=== PATIENT | male | born 1950 | race Caucasian/White ===

== ENCOUNTER 2023-08-12 01:39 | Emergency (ER) | payer BC, MEDICARE, OTHER, SELFPAY ==
[2023-08-12 02:00] LABS: % Basophils 0.4 % (0-2); % Eosinophils 1.9 % (0-6); % Immature Granulocytes 0.3 % (0-0.5); % Lymphocytes 13.8 % (20.5-51.1); % Monocytes 10.3 % (1.7-9.3); % Neutrophils 73.3 % (42.2-75.2); Absolute Eosinophils 0.2 10^3/uL (0-0.7); Absolute Lymphocytes 1.4 10^3/uL (1.2-3.4); Absolute Neutrophils 7.4 10^3/uL (1.4-6.5); Hematocrit 46.9 % (39.0-52.0); Hemoglobin 15.7 g/dL (13.0-18.0); Mean Corp Hgb Conc. 33.5 g/dL (33.0-37.0); Mean Corpuscular Hgb 29.7 pg (27.0-31.0); Mean Corpuscular Volume 88.7 fL (80.0-94.0); Mean Platelet Volume 10.3 fL (7.4-10.4); Nucleated Red Blood Cells % 0 % (-); Platelet Count 210 10^3/uL (130-400); Red Blood Cell Count 5.29 10^6/uL (4.70-6.10)
[2023-08-12 02:12] LABS: ALT (SGPT) 31 U/L (0-50); AST (SGOT) 23 U/L (17-59); Albumin 4.3 g/dl (3.5-5.0); Alkaline Phosphatase 104 U/L (38-126); Blood Urea Nitrogen 23 mg/dl (9-20); Calcium 9.7 mg/dl (8.4-10.2); Carbon Dioxide 25 mmol/L (22-30); Chloride 105 mmol/L (98-107); Estimated Creatinine Clearance 40 ml/min; Glucose 196 mg/dl (70-99); Potassium 4.3 mmol/L (3.5-5.1); Sodium 140 mmol/L (135-145); Total Bilirubin 0.6 mg/dl (0.2-1.3); Total Protein 6.4 g/dl (6.3-8.2); eGFR 38.77
[2023-08-12 02:14] LABS: INR 1.03; PT 13.3 Sec (11.4-14.6)
[2023-08-12 02:15] LABS: APTT 27.7 Sec (23.4-35.0)
[2023-08-12 02:23] LABS: NT-proBNP 1790 pg/ml; Troponin I < 0.012 ng/ml
--- NOTE | 2023-08-12 02:55 | ED.GENMED ---
History of Present Illness
General
Chief Complaint: Heart Rate Problem
Source: patient, spouse and previous hospital records (Hospitalization June 2021. Patient underwent dual-chamber ICD placement)
Exam Limitations: none
Time Seen by Provider: 08/12/23 02:15
Nursing documentation reviewed up to this point in time: agreed with
History of Present Illness
History of Present Illness:
This is a 73-year-old gentleman who has history of chronic heart failure with reduced EF of 20 to 25%, underwent ICD placement June 2021. He also has history of paroxysmal atrial fibrillation chronically maintained on Eliquis, metoprolol, Entresto.
History of hypertension, ecw-fjdivcm-cqvsujenq diabetes, hyperlipidemia, chronic kidney disease stage III and remote history of prostate cancer with prior prostatectomy.
Tonight while lying in bed he admits to having somewhat difficulty falling asleep and then developed some palpitations feeling that his heart was beating slightly faster than usual, he got up out of bed to go to the bathroom and became lightheaded
and slumped to the floor but denies loss of consciousness, did not strike his head. He denies chest pain nor coughing or shortness of breath. Currently denies palpitations.
Prior to tonight he has been feeling well. No shortness of breath. He is compliant with daily weights and states his weight has not changed, has been 200 pounds on a daily basis. No leg pain or swelling.
No recent change in medications.
He arrives via EMS and is noted to be in atrial fibrillation with rapid ventricular response.
Patient states his defibrillator was interrogated last month and he was noted to have 1 episode of A-fib in May that lasted approximately 4 hours during sleep. He was asymptomatic at that time. Prior to that he has not suffered A-fib for quite
some time.
Past History
Past History
ED Past Medical History: Arrthythmia (Paroxysmal atrial fibrillation), Cancer (Prostate cancer status post radical prostatectomy 2019), CHF (Cardiomyopathy EF of 20 to 25%), HTN, Hypercholesterolemia and NIDDM
ED Past Surgical History: Appendectomy (AICD June 2021) and Urological (Radical prostatectomy October 2019)
Social History
Tobacco: Non-smoker
Alcohol: None
Personal:
Living: with family
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
Family History
Family History: Other (Noncontributory)
Phy Exam
Physical Exam
Physical Exam:
GENERAL: 73-year-old gentleman appears his stated age, awake and alert, pleasant, appears in no acute distress. is accompanying.
EYE: pupils equal and reactive
NECK: Supple, no significant adenopathy.
ENT: o/p clr, mmm.
CARDIAC: Irregularly irregular, tachycardic
LUNGS: Clear breath sounds bilaterally, no acute respiratory distress,
ABDOMEN: Soft, without focal tenderness, no r/g, no cvat
NEUROLOGICAL: Alert and oriented, no focal neuro deficits
SKIN: Warm and dry, skin intact.
MUSCULOSKELETAL: No edema, well perfused.
PSYCH: Normal and appropriate interaction.
Course
Orders/Labs/Results
Orders:
Orders
08/12/23 01:44
Electrocardiogram (*1) Urgent
Reason for Study: Atrial Fibrillation
EKG- Treatment ONCE
08/12/23 01:49
Electrocardiogram (*1) Urgent
Reason for Study: Other
Other Reason for Exam: Respiratory Distress
Cardiac Monitoring- Treatment ONCE
EKG- Treatment ONCE
IV Insert/Care/Rem.- Treatment PRN
CR Chest - 2 Views Urgent
Comment:
Reason For Exam: respiratory distress
O2 Therapy [RESP] Urgent
Titrate/Wean O2 to maintain O2 sat greater than (%): 93
Special Instructions: TO MAINTAIN CONTINUOUS O2 SATS >/= 93%
Pulse Ox/cont/shift [RESP] Urgent
Quantity: 1
Special Instructions: continuous pulse ox
08/12/23 01:53
Complete Blood Count/With Diff Urgent
Comprehensive Metabolic Panel Urgent
NT-proBNP Urgent
PTT Urgent
Prothrombin Time Urgent
Troponin I Urgent
08/12/23 02:46
Propofol [Diprivan] 20 ml .ROUTE .STK-MED
08/12/23 03:20
Propofol [Diprivan] 90 mg IV NOW STA
08/12/23 03:31
Electrocardiogram (*1) Urgent
Reason for Study: Atrial Fibrillation
EKG- Treatment ONCE
Abnormal Lab Results
08/12/23
01:53
Absolute Neuts (auto) 7.4 H 10^3/uL
(1.4-6.5)
Absolute Monos (auto) 1.0 H 10^3/uL
(0.1-0.6)
Lymphocytes % 13.8 L %
(20.5-51.1)
Monocytes % 10.3 H %
(1.7-9.3)
BUN 23 H mg/dl
(9-20)
Creatinine 1.8 H mg/dL
(0.7-1.3)
Glucose 196 H mg/dl
(70-99)
08/12/23 01:53
08/12/23 01:53
Vital Signs
Initial and Last Documented VS:
Initial Vital Signs
Pulse Resp
123 20
08/12/23 01:42 08/12/23 01:42
Last Documented Vital Signs
Temp Pulse Resp BP Pulse Ox
98.7 F 108 20 103/57 98
08/12/23 05:34 08/12/23 05:00 08/12/23 05:00 08/12/23 05:00 08/12/23 05:40
Procedures
Cardioversion
Indication:: Afib
Performed by:: jose l
Synchronized?: Yes
Energy Used: 200 joules
Number of attempts: 2
Successful?: Yes
Complications: brief hypoxemia post procedure, promptly resolved with supplemental oxygen
ASA Risk Score: Class II
Any reaction or bad outcome to prior sedation/anesthesia?: No history of a reaction
Sedation level to be attained: moderate
Chart and allergies reviewed: Yes
Patient reassessed prior to sedation: Yes
Time out completed at (validating right patient & procedure): 03:22
History of difficult intubation: No
Airway free of obstruction: Yes
Patient has a gag reflex: Yes
Patient is able to open mouth: Yes
Patient has no dentures: Yes
Patient has no loose teeth: Yes
Medication administered by Provider during Moderate Sedation: IV Propofol (mg)
Total dose administered: 90
Time drug administered: 03:23
Start Time: 03:23
Stop Time: 03:34
MDM/Problems Addressed
Differential Diagnosis Includes:
Patient presents in atrial fibrillation with rapid ventricular response. Suffered a near syncopal event
After getting up out of bed but denies injury nor loss of consciousness. Witnessed by his .
No traumatic findings on exam.
Monitor shows atrial fibrillation with rapid ventricular response 1 10-1 30. He remains hemodynamically stable with systolic blood pressure 120s to 130.
*Pulse Oximetry
Patient hypoxic: no
*EKG
Interpreted by ED Provider?: Yes
Interpretation: abnormal
Comparison EKG: changes noted (Atrial fibrillation has changed normal sinus rhythm)
Rate: tachycardiac
Rhythm: a-fib
[place]: normal axis
QRS Pattern: normal QRS
Ischemia: non-specific ST changes
*Transmission Mechanic Interpretation
Rate: tachycardiac
Interpretation: abnormal
Rhythm: a-fib
*Critical Care Note
Total Time (30-74mins, 75-104mins- exclusive of procedures): Not Applicable
Update Note
Update Note:
Patient cardioverted to normal sinus rhythm without difficulty.
Monitor continues to show normal sinus rhythm, mild sinus tachycardia.
Blood pressure tends to run on the low side but he remains hemodynamically stable, blood pressure increases when standing and he has had no dizziness nor lightheadedness.
Recommend he continue his current medications including twice daily Eliquis, metoprolol, Entresto.
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 Randhawa next week.
ED Attending Note
-
Portions of this chart may have been created with voice recognition software.� Occasional wrong word or��sound alike� substitutions may have occurred due to the inherent limitations of voice recognition software.
Discharge Plan
Departure
Patient Disposition: Home (Routine Discharge)
Date of Disposition: 08/12/23
Time of Disposition: 05:05
Patient with high blood pressure during this ER visit?: No
Condition: Good
Discharge Problem:
Paroxysmal atrial fibrillation with rapid ventricular response
Instructions: Atrial Fibrillation (DC), MODERATE SEDATION ADULT
Prescriptions:
No Action
atorvastatin 10 MG tablet
10 mg PO QPM
Trulicity 1.5 MG/0.5 ML pen injector
See Rx Instructions .ROUTE .COMPLEX
Rx Instructions:
3 mg sq on Tuesdays
glimepiride 4 MG tablet
4 mg PO BID
Jardiance 25 MG tablet
25 mg PO DAILY
metoprolol succinate 100 MG tablet extended release 24 hr
100 mg PO DAILY
aspirin 81 MG tablet,delayed release (DR/EC)
81 mg PO DAILY
Entresto 1 EACH tablet
1 ea PO BID
Rx Instructions:
49/51
docusate sodium [Colace] 100 MG capsule
100 mg PO BID
Eliquis 5 mg Tablet
5 mg PO BID
metformin 1,000 MG tablet
1,000 mg PO DAILY
Referrals:
Orlando Randhawa, DO [Active] - Call in 1-3 days for appt
Casandra Mercado MD [Family Provider] -
Interventions
Interventions:
*Risk Screen - Suicide Last Done: 08/12/23 01:42
*General Assessment Last Done: 08/12/23 01:42
*Neglect/Abuse Screening Last Done: 08/12/23 01:42
ED- Fall Risk Assessment Last Done: 08/12/23 01:42
*ED COVID-19 Vaccine History Last Done: 08/12/23 01:42
*Nursing Disposition Last Done: 08/12/23 05:40
ED- Cardiac Assessment Last Done: 08/12/23 02:03
ED- Pulmonary Assessment Last Done: 08/12/23 02:03
Discharge Date and Time
Discharge Date/Time: 08/12/23 05:30
Print Language: FRENCH
[2023-08-12 03:22] VITALS: BP 98/55
[2023-08-12 03:31] VITALS: BP 111/54
[2023-08-12] MEDS: DIPRIVAN 90 MG IV (03:31)
[2023-08-12 03:42] VITALS: BP 81/53
[2023-08-12 03:46] VITALS: BP 81/53
[2023-08-12 03:56] VITALS: BP 95/65
[2023-08-12 05:00] VITALS: BP 103/57
== END 2023-08-12 05:30 | disposition home or self-care (01) ==
LOC: EMR 01:39
PROVIDERS: EMERGENCY PHYSICIAN Emergency Medicine; FAMILY PHYSICIAN Internal Medicine
DX: R55 Syncope and collapse (principal); R00.2 Palpitations; I13.0 Hypertensive heart and chronic kidney disease with heart failure and stage 1 through stage 4 chronic kidney disease, or unspecified chronic kidney disease; I50.22 Chronic systolic (congestive) heart failure; E11.22 Type 2 diabetes mellitus with diabetic chronic kidney disease; N18.30 Chronic kidney disease, stage 3 unspecified; E78.00 Pure hypercholesterolemia, unspecified; I48.0 Paroxysmal atrial fibrillation; I42.9 Cardiomyopathy, unspecified
CPT/HCPCS: 99283; 92960; 99152; 96374; 71046; 80053; 83880; 84484; 85025; 85610; 85730; 93005

== ENCOUNTER 2023-11-13 13:26 | Inpatient (IN) | payer MEDICARE, OTHER, SELFPAY ==
[2023-11-13] VITALS (12 sets, daily range): BP systolic 96–165; BP diastolic 57–88; BMI 27.8
--- NOTE | 2023-11-13 09:30 | EDRN ---
Pt states that he arrives for two days of SOB at rest w/ exertion and orthopnea, also getting lightheaded/dizziness not related to him resting. Pt also adds he has light pressure chest pain earlier today, none at this time. Norma TEJADA in room w/
pt.
--- NOTE | 2023-11-13 09:40 | ED.GENMED ---
History of Present Illness
<Michael Jimenes PA-C - Last Filed: 11/13/23 13:25>
General
Chief Complaint: Cardiac Symptoms
Source: patient
Time Seen by Provider: 11/13/23 09:25
History of Present Illness
History of Present Illness:
73-year-old male with past medical history of paroxysmal atrial fibrillation, CHF, hypertrophic cardiomyopathy, hypertension, hyperlipidemia, status post ICD implantation presenting to the emergency department for evaluation of 2 to 3 days of
intermittent chest discomfort, exertional dyspnea, last night had 2 pillow orthopnea and feeling intermittently lightheaded. At present time and on arrival to the emergency department patient states he has no concerns presently and states that the
chest discomfort he was feeling this morning is now resolved. 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 Family notes that patient had an episode of atrial fibrillation which brought him to the ER back at the end of July and has not had
any issues since. Patient denies any fevers or infectious symptoms but does note that he had an extended vacation from October 05 until October 23 where both him and his were abroad on a cruise. Patient also denies any peripheral edema,
abdominal pain, nausea, vomiting. He reports good compliance with all medications including his Eliquis and beta-ligia.
Past History
<Michael Jimenes PA-C - Last Filed: 11/13/23 13:25>
Past History
ED Past Medical History: Arrthythmia (Paroxysmal atrial fibrillation), Cancer (Prostate cancer status post radical prostatectomy 2019), CHF (Cardiomyopathy EF of 20 to 25%), HTN, Hypercholesterolemia and NIDDM
ED Past Surgical History: Appendectomy (AICD June 2021) and Urological (Radical prostatectomy October 2019)
Social History
Tobacco: Non-smoker
Alcohol: None
Drug: None
Personal:
Living: with family
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
Family History
Family History: Other (Noncontributory)
Review of Systems
<Michael Jimenes PA-C - Last Filed: 11/13/23 13:25>
Review of Systems
All Other Systems: ROS reviewed and negative except as documented in HPI and ROS
Phy Exam
<Michael Jimenes PA-C - Last Filed: 11/13/23 13:25>
Physical Exam
Physical Exam:
GENERAL: Alert , in no apparent distress
HEAD: NCAT
EYE: clear conjunctiva
NECK: Supple
ENT: mmm.
CARDIAC: Tachycardic rate and rhythm, frequent ectopy
LUNGS: Clear breath sounds bilaterally, no acute respiratory distress, no wheezes/rales/rhonchi
NEUROLOGICAL: Alert and oriented
SKIN: Warm and dry, skin intact.
MUSCULOSKELETAL: No edema, well perfused.
PSYCH: Normal and appropriate interaction.
Scores
<Michael Jimenes PA-C - Last Filed: 11/13/23 13:25>
Heart Failure Risk
Heart Failure Risk Score: Yes
History of Stroke or TIA: No
History of intubation for respiratory distress: No
Heart rate on ED arrival >/= 110: No
SaO2 <90% on arrival on room air: No
HR >/=110 during 3min walk test (or too ill to perform test): Yes
ECG has acute ischemic changes: No
Urea >/=12mmol/L (BUN 33.6mg/dL): Yes
Serum CO2>/=35mmol/L: No
Troponin I or T elevated to VT Level (0.4mg/dL): No
NT-proBNP >/=5,000ng/L (5,000pg/ml): Yes
HF Risk Score: 4
Admission Status: HIGH RISK 26.1% Consider SNF treatment or admission to hospital
Heart Score for Chest Pain Patients
STEMI patient?: No
History: Slightly or Non-Suspicious
ECG: Nonspecific Repolarization
Age: >/= 65 years
Risk Factors: 1 or 2 Risk Factors
Troponin: </= Normal Limit
Heart Score for Chest Pain Patients: 4
Heart Score Risk: 20.3% MACE over next 6 weeks
Withdrawal Assessment of Alcohol
Withdrawal Assessment Completed?: Not applicable
<Jc Multani DO - Last Filed: 11/13/23 15:46>
Heart Failure Risk
HF Risk Score: 4
Admission Status: HIGH RISK 26.1% Consider SNF treatment or admission to hospital
Heart Score for Chest Pain Patients
Heart Score for Chest Pain Patients: 4
Heart Score Risk: 20.3% MACE over next 6 weeks
Course
<Michael Jimenes PA-C - Last Filed: 11/13/23 13:25>
Orders/Labs/Results
Orders:
Orders
11/13/23 09:16
ECG [Electrocardiogram (*1)] Urgent
Reason for Study: Chest Pain
EKG- Treatment ONCE
11/13/23 09:27
IV Insert/Care/Rem.- Treatment PRN
11/13/23 09:42
Complete Blood Count/With Diff Urgent
Comprehensive Metabolic Panel Urgent
D-Dimer Urgent
Magnesium Urgent
Pro-BNP [NT-proBNP] Urgent
Troponin I Urgent
11/13/23 10:44
CR Chest - 2 Views Urgent
Comment:
Reason For Exam: SOB, chest discomfort
11/13/23 11:55
Furosemide [Lasix] 40 mg IV NOW STA
11/13/23 12:36
Troponin I Urgent
11/13/23 13:02
CARDIOLOGY CONSULT Routine
Consulting Provider: Eleazar Metz
Was physician already notified: Yes
Reason for consult: Acute CHF
11/13/23 13:03
Admit/Transfer Patient As Directed
Co-Sign Provider:
Level of Care: Inpatient admission
Assign to:: Telemetry
Physician / Group: rick haji
Diagnosis: acute diastolic chf,cp 2/2chf
Reason for Telemetry: Arrhythmia
Date to Stop Telemetry: 11/16/23
Time to Stop Telemetry: 11:00
Reason for Hospitalization: chf
Expected length of stay greater than two midnights?: Yes
ELOS- Estimated Length of Stay in days: 3
I certify the patient meets the requirements for IP care: Yes
Code Status As Directed
Resuscitation Status: Full Code
11/13/23 13:07
PRN Pain Medication Management As Directed
May give lesser potent ordered pain med per pt: Yes
preference::
Protocol:: Medication orders for pain may be administered in a
manner that supports deferring to patient preference
when the pt is:
- Requesting an ordered lesser potent pain medication.
Least to most potent pain medications are defined
as: acetaminophen < NSAID < tramadol < opioids
(morphine, oxycodone, hydromorphone).
- Requesting a lesser dose of the same medication IF
ORDERED.
- Requesting a less intrusive route of administration
if both routes are prescribed by the provider (PO <
IV).
11/13/23 18:30
Troponin I Urgent
11/14/23 06:00
Echo 2D MMode Color/Doppler Routine
Reason for Study: heart failure, NSVT
Cardiology Consult: Eleazra Metz
11/16/23 11:00
DC Protocol for Telemetry ONCE
Abnormal Lab Results
11/13/23
09:42
WBC 11.2 H 10^3/uL
(4.8-10.8)
MCHC 32.7 L g/dL
(33.0-37.0)
RDW 14.6 H %
(11.5-14.5)
MPV 11.7 H fL
(7.4-10.4)
Absolute Neuts (auto) 9.8 H 10^3/uL
(1.4-6.5)
Absolute Lymphs (auto) 0.5 L 10^3/uL
(1.2-3.4)
Absolute Monos (auto) 0.8 H 10^3/uL
(0.1-0.6)
Neutrophils % 87.8 H %
(42.2-75.2)
Lymphocytes % 4.6 L %
(20.5-51.1)
Carbon Dioxide 20 L mmol/L
(22-30)
BUN 34 H mg/dl
(9-20)
Creatinine 1.7 H mg/dL
(0.7-1.3)
Glucose 175 H mg/dl
(70-99)
11/13/23 09:42
11/13/23 09:42
Vital Signs
Initial and Last Documented VS:
Initial Vital Signs
Temp Pulse Resp BP Pulse Ox
98.1 F 60 16 165/72 98
11/13/23 09:19 11/13/23 09:19 11/13/23 09:19 11/13/23 09:19 11/13/23 09:19
Last Documented Vital Signs
Temp Pulse Resp BP Pulse Ox
98.1 F 106 25 96/68 94
11/13/23 09:19 11/13/23 15:01 11/13/23 15:01 11/13/23 15:01 11/13/23 14:45
Automotive Buyer consulted with Physician
Automotive Buyer consulted with physician?: Yes
Name of Physician Consulted: Carmen
<Jc Multani, DO - Last Filed: 11/13/23 15:46>
Orders/Labs/Results
Orders:
Orders
11/13/23 09:16
ECG [Electrocardiogram (*1)] Urgent
Reason for Study: Chest Pain
EKG- Treatment ONCE
11/13/23 09:27
IV Insert/Care/Rem.- Treatment PRN
11/13/23 09:42
Complete Blood Count/With Diff Urgent
Comprehensive Metabolic Panel Urgent
D-Dimer Urgent
Magnesium Urgent
Pro-BNP [NT-proBNP] Urgent
Troponin I Urgent
11/13/23 10:44
CR Chest - 2 Views Urgent
Comment:
Reason For Exam: SOB, chest discomfort
11/13/23 11:55
Furosemide [Lasix] 40 mg IV NOW STA
11/13/23 12:36
Troponin I Urgent
11/13/23 13:02
CARDIOLOGY CONSULT Routine
Consulting Provider: Eleazar Metz
Was physician already notified: Yes
Reason for consult: Acute CHF
11/13/23 13:03
Admit/Transfer Patient As Directed
Co-Sign Provider:
Level of Care: Inpatient admission
Assign to:: Telemetry
Physician / Group: rick haji
Diagnosis: acute diastolic chf,cp 2/2chf
Reason for Telemetry: Arrhythmia
Date to Stop Telemetry: 11/16/23
Time to Stop Telemetry: 11:00
Reason for Hospitalization: chf
Expected length of stay greater than two midnights?: Yes
ELOS- Estimated Length of Stay in days: 3
I certify the patient meets the requirements for IP care: Yes
Code Status As Directed
Resuscitation Status: Full Code
11/13/23 13:07
PRN Pain Medication Management As Directed
May give lesser potent ordered pain med per pt: Yes
preference::
Protocol:: Medication orders for pain may be administered in a
manner that supports deferring to patient preference
when the pt is:
- Requesting an ordered lesser potent pain medication.
Least to most potent pain medications are defined
as: acetaminophen < NSAID < tramadol < opioids
(morphine, oxycodone, hydromorphone).
- Requesting a lesser dose of the same medication IF
ORDERED.
- Requesting a less intrusive route of administration
if both routes are prescribed by the provider (PO <
IV).
11/13/23 18:30
Troponin I Urgent
11/14/23 06:00
Echo 2D MMode Color/Doppler Routine
Reason for Study: heart failure, NSVT
Cardiology Consult: Eleazar Metz
11/16/23 11:00
DC Protocol for Telemetry ONCE
Abnormal Lab Results
11/13/23
09:42
WBC 11.2 H 10^3/uL
(4.8-10.8)
MCHC 32.7 L g/dL
(33.0-37.0)
RDW 14.6 H %
(11.5-14.5)
MPV 11.7 H fL
(7.4-10.4)
Absolute Neuts (auto) 9.8 H 10^3/uL
(1.4-6.5)
Absolute Lymphs (auto) 0.5 L 10^3/uL
(1.2-3.4)
Absolute Monos (auto) 0.8 H 10^3/uL
(0.1-0.6)
Neutrophils % 87.8 H %
(42.2-75.2)
Lymphocytes % 4.6 L %
(20.5-51.1)
Carbon Dioxide 20 L mmol/L
(22-30)
BUN 34 H mg/dl
(9-20)
Creatinine 1.7 H mg/dL
(0.7-1.3)
Glucose 175 H mg/dl
(70-99)
11/13/23 09:42
11/13/23 09:42
Vital Signs
Initial and Last Documented VS:
Initial Vital Signs
Temp Pulse Resp BP Pulse Ox
98.1 F 60 16 165/72 98
11/13/23 09:19 11/13/23 09:19 11/13/23 09:19 11/13/23 09:19 11/13/23 09:19
Last Documented Vital Signs
Temp Pulse Resp BP Pulse Ox
98.1 F 106 25 96/68 94
11/13/23 09:19 11/13/23 15:01 11/13/23 15:01 11/13/23 15:01 11/13/23 14:45
<Michael Jimenes PA-C - Last Filed: 11/13/23 13:25>
MDM/Problems Addressed
Differential Diagnosis Includes:
CHF exacerbation, PE, worsening valvular dysfunction, ACS, arrhythmia
MDM/Problems Addressed:
73-year-old male presenting to the emergency department for evaluation of waxing and waning chest discomfort, exertional dyspnea, last night had orthopnea and lightheadedness. Patient with significant cardiac history. Good compliance with
medications. Given recent travel and tachycardia here we will obtain a D-dimer for possible PE although feel that this diagnosis is less likely given patient is maintained on Eliquis. Patient heart rate is between 115 in the 130 bpm during most of
my exam. There was a transient episode where the heart rate did drop into the 80s and 90s but then went right back up to around 115 bpm. Once labs resulted will discuss with cardiology to have them consult on patient while in the ED.
<Michael Jimenes PA-C - Last Filed: 11/13/23 13:25>
*Radiology
Radiology exam reviewed: preliminary read by ED provider (no effusions)
*Pulse Oximetry
Patient hypoxic: no
*EKG
Interpreted by ED Provider?: Yes
Comparison EKG: changes noted
Heart Rate: 110
Rate: tachycardiac
Rhythm: sinus and PVC's
*Share Holder Interpretation
Rate: tachycardiac
Rhythm: sinus and PVC's
*Critical Care Note
Total Time (30-74mins, 75-104mins- exclusive of procedures): Not Applicable
Data Reviewed
Review of Other/Old Records Reveals: Labs and Records
<Michael Jimenes PA-C - Last Filed: 11/13/23 13:25>
Patient Management
Discussion with other providers: Hospitalist and Engineering Instructor
Escalation/DeEscalation of care consider admission/obs:
Case discussed with [employer] after ICD was interrogated. Patient had a few episodes of nonsustained ventricular tachycardia on 11/07, few episodes of atrial tachycardia on 11/06 but device is functioning as it should. Patient's work and history
seems to be most convincing for CHF. Given history I did notify cardiology we will come to the ER to consult on the patient. Following their consultation they did recommend admission for diuresis. Hospitalist team is aware and accepts for
continued evaluation and treatment.
ED Attending Note
<Michael Jimenes PA-C - Last Filed: 11/13/23 13:25>
-
Portions of this chart may have been created with voice recognition software.� Occasional wrong word or��sound alike� substitutions may have occurred due to the inherent limitations of voice recognition software.
<Jc Multani DO - Last Filed: 11/13/23 15:46>
ED Attending Note
Patient seen and examined by attending physician: Yes
I performed the substantive portion of visit, reviewed & personally made and approve the management plan that is documented in note by myself or CHRISTINA.: Yes
ED Attending Note:
73-year-old male with history of A-fib and CHF who presents with orthopnea and shortness of breath. Was recently on vacation. Presents in bigeminy. Exam: Systolic ejection murmur noted. legs flat. bigeminy on tele.
A/P: suspect CHF. lasix, admit. seen by cardiology
Discharge Plan
Departure
Patient Disposition: Admit
Date of Disposition: 11/13/23
Time of Disposition: 12:20
Presentation/result/management discussed w/ accepting MD/DO: Hospitalist
Discharge Problem:
Acute exacerbation of CHF (congestive heart failure)
Interventions
Interventions:
*Risk Screen - Suicide Last Done: 11/13/23 09:19
*General Assessment Last Done: 11/13/23 09:43
*Neglect/Abuse Screening Last Done: 11/13/23 09:19
ED- Fall Risk Assessment Last Done: 11/13/23 09:43
*ED COVID-19 Vaccine History Last Done: 11/13/23 09:43
ED- Cardiac Assessment Last Done: 11/13/23 09:47
ED- Pulmonary Assessment Last Done: 11/13/23 09:47
[2023-11-13 09:52] LABS: % Basophils 0.4 % (0-2); % Eosinophils 0.1 % (0-6); % Immature Granulocytes 0.4 % (0-0.5); % Lymphocytes 4.6 % (20.5-51.1); % Monocytes 6.7 % (1.7-9.3); % Neutrophils 87.8 % (42.2-75.2); Absolute Lymphocytes 0.5 10^3/uL (1.2-3.4); Absolute Monocytes 0.8 10^3/uL (0.1-0.6); Absolute Neutrophils 9.8 10^3/uL (1.4-6.5); Hematocrit 45.5 % (39.0-52.0); Hemoglobin 14.9 g/dL (13.0-18.0); Mean Corp Hgb Conc. 32.7 g/dL (33.0-37.0); Mean Corpuscular Hgb 29.3 pg (27.0-31.0); Mean Corpuscular Volume 89.4 fL (80.0-94.0); Mean Platelet Volume 11.7 fL (7.4-10.4); Nucleated Red Blood Cells % 0 % (-); Platelet Count 200 10^3/uL (130-400); Red Blood Cell Count 5.09 10^6/uL (4.70-6.10); Red Cell Dist. Width 14.6 % (11.5-14.5); White Blood Cell Count 11.2 10^3/uL (4.8-10.8)
--- NOTE | 2023-11-13 10:10 | EDRN ---
Pacemaker/AICD interrogated at this time. Awaiting for report.
[2023-11-13 10:16] LABS: NT-proBNP 14700 pg/ml; Troponin I 0.023 ng/ml
[2023-11-13 10:21] LABS: ALT (SGPT) 50 U/L (0-50); AST (SGOT) 26 U/L (17-59); Albumin 4.2 g/dl (3.5-5.0); Alkaline Phosphatase 117 U/L (38-126); Blood Urea Nitrogen 34 mg/dl (9-20); Calcium 9.3 mg/dl (8.4-10.2); Carbon Dioxide 20 mmol/L (22-30); Chloride 105 mmol/L (98-107); Estimated Creatinine Clearance 42 ml/min; Glucose 175 mg/dl (70-99); Magnesium 2.1 mg/dl (1.6-2.3); Potassium 4.7 mmol/L (3.5-5.1); Sodium 139 mmol/L (135-145); Total Bilirubin 1.1 mg/dl (0.2-1.3); Total Protein 6.3 g/dl (6.3-8.2); eGFR 41.52
[2023-11-13 10:32] LABS: D-Dimer < 0.27 ug/mlFEU (0.00-0.50)
--- NOTE | 2023-11-13 11:25 | CON.CAR ---
Addendum entered and electronically signed by Eleazar Metz DO 11/13/23 20:07:
I saw and examined the patient.
The Social Worker Assistant's note was reviewed and I agree with the note.
Comment:
Plan:
-Presented 11/13/2023 with with worsening shortness of breath, orthopnea, chest tightness/pressure
Evidence of HFrEF acute on chronic
pBNP is increased to over 14K
OPTIVOL data trending upward consistent with increased volume.
recent dietary indescretion with cruise
Monitor for response to diuresis. lasix 40 mg IV in ER
he was not on lasix as outpt.
Cont outpatient GDMT for HFrEF w/ Entresto, Jardiance, Toprol and Jardiance.
Acute on chronic renal insufficiency with cr 1.7 baseline about 1.5. Monitor cr and daily wts and Is and Os with diuresis.
Nonobstructive coronary artery disease on catheterization in 2021. Troponin negative.
Paroxysmal atrial fibrillation maintained on anticoagulation with Eliquis. Pacemaker interrogation in July 2023 showed very low A-fib burden less than 0.1%. He did have Afib 08/12/2023 and underwent CV in [facility]. Afib burden low since then
Check echo to reeval
Discussed with at bedside.
Original Note:
Consultation
Consultation Request
Date/Time Consultation Requested: 11/13/2023
Date/Time Consultation Performed: 11/13/2023
Requesting Provider: Michael Darnell PA-C
Performing Provider: Edilma Seymour PA-C for Dr. Metz
Reason for Consultation: Shortness of breath, chest pain
Medical History
-
History of Present Illness:
Patient is a 73-year-old male with past medical history significant for nonischemic cardiomyopathy, dual-chamber Medtronic ICD, nonobstructive coronary artery disease on cardiac catheterization in 2021, paroxysmal atrial fibrillation on chronic
anticoagulation, hypertension, hyperlipidemia, type 2 diabetes, CKD stage IIIb who presents to emergency department from primary care office with complaints of intermittent chest discomfort x 2 to 3 days as well as progressively worsening dyspnea on
exertion. Patient and his are on an extended cruise in late September through mid October. Around 11/06/2023 he started noting worsening shortness of breath with intermittent dizziness/lightheadedness. Now has new two-pillow orthopnea and
chest pressure/heaviness D-dimer negative. proBNP elevated at 14,700. Chest x-ray moderate elevation of left hemidiaphragm associated with left basilar segment segmental atelectasis. Troponin x 1 negative. ECG showed sinus rhythm with PVCs with
ventricular bigeminy. Interrogation of his ICD shows upward trending OptiVol fluid index since early October. He has also had multiple brief episodes of NSVT last on 11/06/2023.
PMH:
Paroxysmal atrial fibrillation
Chronic anticoagulation on Eliquis
Heart failure with reduced ejection fraction
Hypertrophic cardiomyopathy
Dual-chamber Medtronic ICD 06/2021
Hypertension
Hyperlipidemia
Prostate cancer status post prostatectomy
Uxz-uoojmqk-mdbpcyhck diabetes
Past Medical History
Past Medical History: Other (See HPI)
Past Surgical History: Appendectomy, Cardiac (Dual-chamber Medtronic ICD June 2021), Urological (Radical prostatectomy October 2019) and Other (Bilateral cataract extractions)
Social History
Tobacco: Non-Smoker
Alcohol: Occasional (socially)
Drug: None
Personal:
Living: With Family
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
Family History
Family History: Diabetes and Hypertension
Allergies / Home Medications
Allergy/AdvReac Type Severity Reaction Status Date / Time
MAGALY Inhibitors Allergy severe Verified 11/13/23 09:23
cough
�Medication �Instructions �Recorded �Confirmed �Type
atorvastatin 10 mg tablet 10 mg PO QPM High cholesterol 10/22/19 08/12/23 History
dulaglutide 1.5 mg/0.5 mL See Rx Instructions .Route 10/22/19 08/12/23 History
subcutaneous pen injector .COMPLEX Diabetes
(Trulicity)
empagliflozin 25 mg tablet 25 mg PO DAILY 03/05/21 08/12/23 History
(Jardiance)
glimepiride 4 mg tablet 4 mg PO BID 03/05/21 08/12/23 History
aspirin 81 mg tablet,delayed 81 mg PO DAILY 06/09/21 08/12/23 History
release
metoprolol succinate 100 mg 100 mg PO DAILY 06/09/21 08/12/23 History
tablet,extended release 24 hr
sacubitril 49 mg-valsartan 51 mg 1 ea PO BID 06/09/21 08/12/23 History
tablet (Entresto)
docusate sodium 100 mg capsule 100 mg PO BID 06/22/21 08/12/23 History
(Colace)
apixaban 5 mg tablet (Eliquis) 5 mg PO BID 08/12/23 08/12/23 History
metformin 1,000 mg tablet 1,000 mg PO DAILY 08/12/23 08/12/23 History
Review of Systems
-
History Source: Patient
All other systems: Negative unless noted
Physical Exam
Vital Signs
Temp Pulse Resp BP Pulse Ox
98.1 F 108 29 139/81 93
11/13/23 09:19 11/13/23 11:00 11/13/23 11:00 11/13/23 11:00 11/13/23 11:21
GEN: No distress, awake, Ox3
HEENT: supple, anicteric, mmm
LUNGS: Crackles at bases, mildly decreased at left base as well, no wheezes/rales
CV: reg with ectopy noted, S1/S2, no murmur, rub or gallop
ABD: Mildly distended/mild firmness, BS+, nontender
EXT: Trace edema, no clubbing or cyanosis
NEURO: Gross non-focal
SKIN: No rash, warm, dry, pink
Lab Results
11/13/23 09:42
11/13/23 09:42
Troponin I 0.023 ng/ml 11/13/23 09:42
Kvf-K-Ezsnmhddlxd Pept 45307 pg/ml 11/13/23 09:42
Impression / Plan
-
PCP: Casandra Mercado
Lead Miner Blasting: Dr. Orlando Randhawa
Impression:
Presented 11/13/2023 with worsening shortness of breath, orthopnea, chest pain
Acute on chronic heart failure with reduced ejection fraction, proBNP 14,700
CARLOS on CKD
Paroxysmal atrial fibrillation, s/p CV 08/12/2023
Chronic anticoagulation on Eliquis
Heart failure with reduced ejection fraction
Non-ischemic cardiomyopathy
Dual-chamber Medtronic ICD 06/2021
Hypertension
Hyperlipidemia
Prostate cancer status post prostatectomy
Dvm-kbbtrkt-bahnyevlf diabetes
CKD, baseline creatinine 1.5
Echo 05/28/2021: EF 20 to 25% with global hypokinesis. Left ventricle mildly dilated. Left atrial dilation. Mildly reduced right systolic function. Mild MR.
Cardiac cath 2021: LAD 30% stenosis, left circumflex: Luminal irregularities. RCA: 20% stenosis.
Plan:
-Presented 11/13/2023 with with worsening shortness of breath, orthopnea, chest tightness/pressure
-Acute on chronic heart failure with reduced ejection fraction, proBNP 14,700, this is much higher than previous BNP which was 1790
-Interrogation of ICD shows upward trending OptiVol fluid index which started in early October and has continued to rise since.
-Most likely heart failure exacerbation secondary to traveling with dietary noncompliance while on cruise.
-Would give a dose of IV Lasix 40 mg x 1 now.
-Monitor response with diuresis. Pt is not on diuretic as outpt but likely will need to go home on 40 mg oral Lasix.
-Outpatient GDMT for HFrEF w/ Entresto, Jardiance, Toprol and Jardiance.
-CARLOS on CKD, 1.7. Baseline creat per outpt records 1.5. Monitor with diuresis. Consider holding Entresto with diuresis.
-Nonobstructive coronary artery disease on catheterization in 2021. Troponin negative. Would repeat given chest pressure/tightness.
-Paroxysmal atrial fibrillation maintained on anticoagulation with Eliquis. Pacemaker interrogation in July 2023 showed very low A-fib burden less than 0.1%. He did have Afib 08/12/2023 and underwent CV in [facility]. Afib burden low since then
-Dual-chamber Medtronic ICD interrogated. Several episodes of NSVT and 1 episode of SVT. Last NSVT was 11/05/2022. Patient currently in sinus rhythm with ventricular bigeminy. Monitor on telemetry
-Keep potassium greater than 4, magnesium greater than 2
-Last echo in 2021 showed reduced ejection fraction with global hypokinesis. Would repeat echo
HPI 11/13/2023:
Patient is a 73-year-old male with past medical history significant for nonischemic cardiomyopathy, dual-chamber Medtronic ICD, nonobstructive coronary artery disease on cardiac catheterization in 2021, paroxysmal atrial fibrillation on chronic
anticoagulation, hypertension, hyperlipidemia, type 2 diabetes, CKD stage IIIb who presents to emergency department from primary care office with complaints of intermittent chest discomfort x 2 to 3 days as well as progressively worsening dyspnea on
exertion. Patient and his are on an extended cruise in late September through mid October. Around 11/06/2023 he started noting worsening shortness of breath with intermittent dizziness/lightheadedness. Now has new two-pillow orthopnea and
chest pressure/heaviness D-dimer negative. proBNP elevated at 14,700. Chest x-ray moderate elevation of left hemidiaphragm associated with left basilar segment segmental atelectasis. Troponin x 1 negative. ECG showed sinus rhythm with PVCs with
ventricular bigeminy. Interrogation of his ICD shows upward trending OptiVol fluid index since early October. He has also had multiple brief episodes of NSVT last on 11/06/2023.
Data Reviewed
-
EKG: Report Reviewed by me, Discussed with Physician, Discussed with Nurse, Discussed with Patient and Discussed with Family
Radiology: Report Reviewed by me, Discussed with Physician, Discussed with Nurse, Discussed with Patient and Discussed with Family
Labs: Labs Reviewed by me, Discussed with Physician, Discussed with Nurse, Discussed with Patient and Discussed with Family
Old Records: Reviewed
[2023-11-13] MEDS: LASIX 40 MG IV (12:03)
--- NOTE | 2023-11-13 12:07 | EDRN ---
Noris TEJADA w/ cardiology in room w/ pt at this time.
--- NOTE | 2023-11-13 12:30 | EDRN ---
repeat troponin drawn and sent. Pt has voided 325 mL of urine in urinal since administration of lasix.
--- NOTE | 2023-11-13 12:32 | HPS.HSE ---
Family Physician
-
Family Physician: Casandra Mercado
Chief Complaint
-
Shortness of breath, MOHAN, orthopnea, chest pressure with activity
History of Present Illness
73-year-old male complaining of shortness of breath, orthopnea using 2 pillows, dyspnea on exertion with lightheadedness and pressure sensation in chest over the last 7 days. He reports he was on an extended vacation from October 05 until October
10 on a cruise. He denies any headache, fever, chills, cough, abdominal pain, nausea, vomiting, diarrhea, peripheral edema. He states he used to be on Lasix back in 2021 and was able to taper off. He was given 40 mg of IV Lasix in the ER diuresed
400 cc urine. He has history of hypertrophic cardiomyopathy with a EF 2025% in May 2021, paroxysmal A-fib new 08/12/2023 status post cardioversion in ER on current Eliquis, chronic systolic CHF, HTN, HLD, DM2, prostate cancer status post radical
prostatectomy, obesity
Medical History
Past Medical History
Past Medical History: Reports Other
Additional Past Medical History:
hypertrophic cardiomyopathy with a EF 2025% in May 2021,
paroxysmal A-fib new 08/12/2023 status post cardioversion in ER on current Eliquis
chronic systolic CHF
HTN
HLD
DM2
prostate cancer status post radical prostatectomy
obesity
Past Surgical History: Reports Other
Additional Past Surgical History:
Dual-chamber Medtronic ICD June 2021
radical prostatectomy October 2021 prostate cancer
bilateral cataract extraction
Social History
Tobacco: Non-smoker
Alcohol: None
Drug: None
Personal:
Living: With Family
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
Family History
Family History: Other (Father CAD [place] age 61, DM2, CHF, mother age 92 old age Hx DM 2, brother 69 DM2, acute lymphoblastic leukemia, sister age 73 DM2, 1 sister age 71 healthy)
Allergies / Home Medications
Allergies reflects when Allergies were last updated in [facility].
Home Medications with original date entered in [facility]
Allergy/Medication List:
Allergies
Allergy/AdvReac Type Severity Reaction Status Date / Time
MAGALY Inhibitors Allergy severe Verified 11/13/23 09:23
cough
Home Medications
atorvastatin 10 mg tablet 10 mg PO QPM High cholesterol 10/22/19
empagliflozin 25 mg tablet (Jardiance) 25 mg PO DAILY 03/05/21
glimepiride 4 mg tablet 4 mg PO BID 03/05/21
aspirin 81 mg tablet,delayed release 81 mg PO DAILY 06/09/21
metoprolol succinate 100 mg tablet,extended release 24 hr 100 mg PO DAILY 06/09/21
docusate sodium 100 mg capsule (Colace) 100 mg PO BID 06/22/21
apixaban 5 mg tablet (Eliquis) 5 mg PO BID 08/12/23
metformin 1,000 mg tablet 1,000 mg PO DAILY 08/12/23
dulaglutide 3 mg/0.5 mL subcutaneous pen injector (Trulicity) 3 mg SC TU 11/13/23
sacubitril 49 mg-valsartan 51 mg tablet (Entresto) 1 tab PO BID 11/13/23
Review of Systems
-
History Source: Patient
A 12 point ROS was completed and negative except as noted: Yes
Constitutional: Denies Fever, Weight Gain or Fatigue
EENT: Denies Sore Throat or Runny Nose
Respiratory: Reports Cough (Nonproductive) and Trouble Breathing (SOB, MOHAN, orthopnea)
Cardiac: Reports Chest Pain ( with light activity); Denies Diaphoresis, Palpitations or Syncope
Abdomen/GI: Denies Abdominal Pain, Nausea, Vomiting, Diarrhea, Constipated or Bloody Stools
: Denies Dysuria, Frequency, Flank Pain, Incontinence, Difficulty Voiding or Urgency
Musculoskeletal: Reports Edema (Trace bilateral lower legs); Denies Joint Pain
Skin: Denies Itching or Rash
Neurological: Denies Dizzy, Headache, Weakness or Numbness
Endocrine: Reports No Symptoms
Hematologic/Lymphatic: Reports No Symptoms
Psych: Reports Calm
Physical Exam
Vital Signs
Vital Signs
Temp Pulse Resp BP Pulse Ox
98.1 F 109 31 144/72 92
11/13/23 09:19 11/13/23 12:03 11/13/23 11:30 11/13/23 12:03 11/13/23 11:30
Physical Exam
General: Comfortable and Conversant; No Pain, Fever or Chills
HEENT: NormoCephalic, Anicteric, Moist mucous membranes, PERRLA, [place] Conjunctivae and No Ptosis
Respiratory: Clear; No Wheezes, Rales or Rhonchi
Cardiac: S1/S2, Regular Rhythm and Peripheral Edema (Trace bilateral); No Murmur, Rub, Gallop or JVD
GI: Soft, Non Tender, Non Distended, Normal Bowel Sounds and No Hepatosplenomegaly
Rectal: Deferred by Provider
Genito-urinary: Deferred by me
Musculoskeletal: No Clubbing, No Cyanosis, Edema, Left Lower Extremity (Trace bilateral) and Edema, Right Lower Extremity (Trace bilateral); No Edema, Left Upper Extremity or Edema, Right Upper Extremity
Skin: Warm and Dry; No Rash
Neuro: AO x 3, No Motor Deficits, Cranial Nerves Intact and No Sensory Deficits; No Slurred Speech, Facial Droop, Tremors or Sedated
Psych: Calm
Laboratory Results
-
11/13/23 09:42
11/13/23 09:42
Laboratory Results
Total Bilirubin 1.1 mg/dl (0.2-1.3) 11/13/23 09:42
AST 26 U/L (17-59) 11/13/23 09:42
ALT 50 U/L (0-50) 09/30/24 09:42
Alkaline Phosphatase 117 U/L (38-126) 11/13/23 09:42
Troponin I 0.023 ng/ml 11/13/23 09:42
Impression/Plan
-
Impression/plan:
Admit to telemetry
#Acute hypoxic resp insuff 2/2 mixed CHF exacerbation/Hx chronic systolic CHF
BNP 14,700
90% RA,Will give supplemental O2 via nasal cannula 2 L nasal cannula
-I/O, daily weights
-IV Lasix 40 mg given once in ER, continue IV Lasix 40 mg daily
-Repeat 2D echo
-Interrogation of ICD shows upward trending OptiVol fluid index which started in early October and has continued to rise since.
-Consult [facility] cardiology
-Continue Entresto
-Diet cholesterol-lowering, fluid restrict 40 ounce, 1800 ADA
-Follow CBC, BMP
-PT/OT/case management consult
CXR: No acute pulmonary abnormality.
Moderate elevation left hemidiaphragm associated with left basilar subsegmental atelectasis unchanged
#Chest pain exertional likely secondary to CHF
-Hx nonobstructive CAD cath 2021
-Follow troponins troponin 0.023
-Continue aspirin 81 mg daily, beta-ligia, statin
#Hx nonischemic cardiomyopathy
#ICD June 2021
-Continue Entresto
2D echo 05/28/2021: EF EF 20 to 25%, severely reduced LVSF with global hypokinesis unable to visualize wall abnormalities.
Diastolic dysfunction inadequately assessed although appears normal
#Paroxysmal A-fib�new 08/12/2023
#Status post cardioversion in ER to NSR
-Continue Eliquis 5 mg twice daily, metoprolol XR 100 mg daily
#CKD stage IIIb
-Creat 1.7 prior creat 1.21 April 2023
-Follow BMP
#DM 2
Accu-Cheks with SSI, check HgbA1c
-Hold metformin, Trulicity
-Continue Jardiance, glimepiride
#HLD
-Check lipid profile
-Continue atorvastatin 10 mg daily
#Prostate cancer S/PE radical prostatectomy October 2019
DVT prophylaxis
-Continue CLINICAL PHLEBOTOMIST Eliquis
Full code
--- NOTE | 2023-11-13 12:44 | W.PN.UPDATE ---
Update Note
Progress Note Update
This note serves as an addendum to the H&P by sack keeper CHRISTINA Melissa SPEAR,
HPI
73M HX NICM, LVEF 20-25, Dual chamber AICD, nonobstructive CAD per on CC ( 2021) paroxysmal AF on chronic AC, HTN, HLD, T2DM, CKD 3b sent buy PCP to ER for:
- intermittent chest discomfort x 2 to 3 days, progressively worsening MOHAN
- S/P extended cruise in late September through mid October. Following that he noted worsening shortness of breath
- Denied weight gain. Stable wt 195- 197 lb per patient
- associate with two-pillow orthopnea.
VS:
Low 90 on RA
lab:
D-dimer negative.
proBNP elevated at 14,700.
Chest x-ray moderate elevation of left hemidiaphragm associated with left basilar segment segmental atelectasis.
Troponin x 1 negative.
ECG showed sinus rhythm with PVCs.
PMH:
Paroxysmal atrial fibrillation
Chronic anticoagulation on Eliquis
Heart failure with reduced ejection fraction
Hypertrophic cardiomyopathy
Dual-chamber Medtronic ICD 06/2021
Hypertension
Hyperlipidemia
Prostate cancer status post prostatectomy
[id number]-[id number] diabetes
Reviewed VS:
Vital Signs
Temp Pulse Resp BP Pulse Ox
98.1 F 109 31 144/72 92
11/13/23 09:19 11/13/23 12:03 11/13/23 11:30 11/13/23 12:03 11/13/23 11:30
PE
Gen: NAD, used 2 pillows and no dyspne
HEENT: anicteric
Neck: supple. No JVD
Lungs: slight rales but disappeared with cough. No wheeze and no rhonchi
Cor: RRR S1 S2
Abdomen: soft. ND NG No RTD
DEHAIRER: AAO3,non focal
MS: 1 plus edema of distal Kina
Psych: appropriate, good sense of humor
Data
WCC 11.2
DD < 0.27
Cr 1.7 - 1.8 on 08/12/23
eGFR 41
PENDING TPN
proBNP 689936 - 1790 on 08/12/23
CXR:
Mild cardiomegaly is identified.
Left subclavian pacemaker/AICD is unchanged.
Unchanged moderate elevation of the left hemidiaphragm.
Streaky opacity at the left lung base, most suggestive of subsegmental atelectasis.
No evidence of lobar pneumonia, pleural effusion, or pneumothorax.
No evidence of decompensated CHF.
Mild degenerative change is seen within the thoracic spine.
EKG
SINUS TACHYCARDIA WITH FREQUENT PREMATURE VENTRICULAR COMPLEXES
LEFT VENTRICULAR HYPERTROPHY WITH REPOLARIZATION ABNORMALITY ( Sokolow-Myers )
ABNORMAL ECG
WHEN COMPARED WITH ECG OF 12-AUG-2023 03:33,
PREMATURE VENTRICULAR COMPLEXES ARE NOW PRESENT
PREMATURE SUPRAVENTRICULAR COMPLEXES ARE NO LONGER PRESENT
Confirmed by DIPAK HOLLEY, CASH ([id number]) on 11/13/2023 9:32:45 AM
05/29/23 ECHO
EF 20 to 25% with global hypokinesis.
Left ventricle mildly dilated.
Left atrial dilation.
Mildly reduced right systolic function. Mild MR.
ASSESSMENT & PLAN
Pending Rx reconciliation
Worsening MOHAN , orthopnea, chest pain, Wt gain
Acute on chronic mixed CHF
- chest discomfort. Pending TPNI. HX Non occlusive CAD per 2021 CC
- severely educed LVEF with proBNP 14,700
- Associated acute hypoxic RI
- CARLOS suspect Cardiorenal syndrome. HX CKD 3b
- IV lasix 40 now and daily
- O2 to keep POx > 94%
- f/u daily Wt and IOs
- d/u daily BMP
- trend TPNI
- [facility] card consulted
Prior HX
HX NICM, LVEF 20-25
Nonobstructive CAD per on CC ( 2021)
Dual chamber AICD
Paroxysmal AF on chronic AC
Essential HTN;
HLD
T2DM: held metformin
CKD 3b s
- pending Rx reconciliation
DVT Px: on chr Eliquis
Code: Full code
IP TLM
--- NOTE | 2023-11-13 12:45 | EDRN ---
Noris Nava PHYSICIAN OFFICE REP in room w/ pt.
--- NOTE | 2023-11-13 12:47 | EDRN ---
Dr. Anglin in room w/ pt at this time.
[2023-11-13 13:13] LABS: Troponin I 0.025 ng/ml
[2023-11-13 18:14] LABS: Glucose - Point of Care 151 mg/dl (70-99)
[2023-11-13] MEDS: NOVOLOG FLEXPEN-LOW RESISTANCE 1 UNITS SC (18:21)
[2023-11-13] MEDS: LIPITOR 10 MG PO (18:21)
[2023-11-13] MEDS: COLACE 100 MG PO (19:20)
[2023-11-13] MEDS: ENTRESTO 49 MG/51 MG 1 TAB PO (19:20)
[2023-11-13] MEDS: AMARYL 4 MG PO (19:20)
[2023-11-13] MEDS: ELIQUIS 5 MG PO (19:21)
[2023-11-13 21:29] LABS: Glucose - Point of Care 108 mg/dl (70-99)
[2023-11-13 23:10] LABS: Troponin I 0.033 ng/ml
--- NOTE | 2023-11-13 23:13 | PTCARENOTE ---
Pt had troponin level drawn. This RN received a call from lab notifying them a troponin level of 0.033, which is almost a critical lab value. GREENHOUSE TECHNICIAN made aware of this lab result, new order for STAT EKG obtained. EKG completed, no new orders obtained
s/p EKG. Care ongoing.
[2023-11-14] VITALS (10 sets, daily range): BP systolic 111–153; BP diastolic 66–98; PULSE 112; O2SAT 98; BMI 25.9
--- NOTE | 2023-11-14 01:47 | PTCARENOTE ---
Pt complaining of new onset of pain along his rib cage a little below the nipple line as well as SOB. This RN raised the HOB and put pt on 2L NC. VSS. STAFF ASSISTANT made aware, new order for Lasix 20mg ordered. Care ongoing.
[2023-11-14] MEDS: LASIX 20 MG IV (02:15)
[2023-11-14 07:53] LABS: % Basophils 0.3 % (0-2); % Eosinophils 0.7 % (0-6); % Immature Granulocytes 0.5 % (0-0.5); % Lymphocytes 6.4 % (20.5-51.1); % Monocytes 10.7 % (1.7-9.3); % Neutrophils 81.4 % (42.2-75.2); Absolute Eosinophils 0.1 10^3/uL (0-0.7); Absolute Lymphocytes 0.6 10^3/uL (1.2-3.4); Absolute Neutrophils 7.2 10^3/uL (1.4-6.5); Hematocrit 41.7 % (39.0-52.0); Mean Corp Hgb Conc. 33.6 g/dL (33.0-37.0); Mean Corpuscular Hgb 29.2 pg (27.0-31.0); Mean Corpuscular Volume 86.9 fL (80.0-94.0); Mean Platelet Volume 12.5 fL (7.4-10.4); Nucleated Red Blood Cells % 0 % (-); Platelet Count 189 10^3/uL (130-400); Red Cell Dist. Width 14.6 % (11.5-14.5); White Blood Cell Count 8.9 10^3/uL (4.8-10.8)
[2023-11-14 07:55] LABS: Glucose - Point of Care 128 mg/dl (70-99)
[2023-11-14] MEDS: NOVOLOG FLEXPEN-LOW RESISTANCE SC ×3 (08:13→17:39)
[2023-11-14] MEDS: ENTRESTO 49 MG/51 MG 1 TAB PO ×2 (08:33→20:32)
[2023-11-14] MEDS: AMARYL 4 MG PO ×2 (08:33→20:31)
[2023-11-14] MEDS: FARXIGA 10 MG PO (08:34)
[2023-11-14] MEDS: ASPIR LOW (ENTERIC COATED) 81 MG PO (08:34)
[2023-11-14] MEDS: TOPROL XL 100 MG PO (08:34)
[2023-11-14] MEDS: ELIQUIS 5 MG PO ×2 (08:35→20:31)
[2023-11-14] MEDS: COLACE 100 MG PO ×2 (08:35→20:31)
[2023-11-14] MEDS: LASIX 40 MG IV (08:35)
[2023-11-14 09:02] LABS: HDL Cholesterol 48 mg/dl; LDL Cholesterol, Calculated 52 mg/dl; Total Cholesterol 120 mg/dl (50-199); Triglyceride 100 mg/dl (10-149); Very Low Density Lipoprotein 20 mg/dl (0-30)
[2023-11-14 09:06] LABS: Glycohemoglobin (HgbA1c) 7.4 % (4.0-5.6)
--- NOTE | 2023-11-14 10:29 | W.PN.HOSP.TC ---
Today's Communication/Plan
-
see A/P
Assessment / Plan
Assessment / Plan
HPI: 73-year-old male PMH hypertrophic cardiomyopathy with EF 20/25% in May 2021, paroxysmal A-fib status post cardioversion in ER on Eliquis, chronic systolic CHF, HTN, HLD, DM2, prostate cancer status post radical prostatectomy, obesity; p/w
shortness of breath, orthopnea and dyspnea on exertion. He also c/o chest pressure.
A/P:
# MOHAN , orthopnea, chest pain, Wt gain likely due to Acute on chronic mixed CHF
# h/o non-occlusive CAD
# h/o NICM, LVEF 20-25
# Dual chamber AICD
# Acute hypoxic respiratory insufficiency, resolved
Troponin 0.033
Placed on 2L NC, weaned to RA
Cont IV lasix 40 daily, daily weight
Continue BUILDING MAINTENANCE CUSTODIAN Entresto and Toprol with holding parameter
Check echo
[facility] card consulted
# CARLOS suspect Cardiorenal syndrome.
# H/o CKD 3b
SCr 1.7 on admission, baseline around 1.2
Monitor SCr closely while on IV lasix
# Paroxysmal AF on chronic AC
# Status post cardioversion
Continue Eliquis 5 mg twice daily
Cont metoprolol XR 100 mg daily
# Essential HTN
# HLD
Continue atorvastatin 10 mg daily
# T2DM: held metformin
HgbA1c 7.4%
Hold metformin, Trulicity
Continue Jardiance, glimepiride
ISS
# Prostate cancer s/p radical prostatectomy October 2019
DVT prophylaxis-Continue BUILDING MAINTENANCE CUSTODIAN Eliquis
Full code
DW Card team
Anticipated Discharge: Within 24 hours
Subjective/Interval History
-
Date of Service: November 14, 2023
Objective Data
-
Labs:
Laboratory Results
11/14/23 11/14/23
05:59 09:31
WBC 8.9
Hgb 14.0
Hct 41.7
Plt Count 189
Sodium Cancelled Pending
Potassium Cancelled Pending
Chloride Cancelled Pending
Carbon Dioxide Cancelled Pending
BUN Cancelled Pending
Creatinine Cancelled Pending
Glucose Cancelled Pending
Calcium Cancelled Pending
Total Bilirubin Cancelled Pending
AST Cancelled Pending
ALT Cancelled Pending
Alkaline Phosphatase Cancelled Pending
Vital Signs:
Vital Signs
Temp Pulse Resp BP Pulse Ox
36.3 C 109 28 134/98 94
11/14/23 07:32 11/14/23 08:33 11/14/23 07:32 11/14/23 08:33 11/14/23 07:32
I&O
11/13/23 11/14/23 11/15/23
06:59 06:59 06:59
Intake Total 240 / 240
Output Total 1525 / 1525
Balance -1525 / -1525 240 / 240
Review of Systems
-
Cardiac: Reports Orthopnea; Denies Chest Pain
Physical Exam
-
General: Well Developed, Well Nourished, No Apparent Distress, Comfortable and Conversant; Negative Respiratory Distress
HEENT: Normocephalic, Atraumatic, Nose Appears Normal and Ears Appear Normal; Negative Oxygen
Respiratory: Clear to Auscultation and Non Labored Respirations; Negative Accessory Resp Muscle Use
Cardiac: Regular Rhythm and S1/S2
GI: Soft, Nontender, Nondistended and Normal Bowel Sounds
Skin: Warm and Dry
Neuro: Awake, Alert, Oriented, AO x 3 and Nonfocal/Grossly Intact
Psych: Calm and Intact Judgement/Insight
Data Reviewed
-
Labs: Labs Reviewed by me
--- NOTE | 2023-11-14 10:39 | W.PN.CARDCBS ---
Addendum entered and electronically signed by Eleazar Metz DO 11/14/23 12:49:
I saw and examined the patient.
The Citizen Participation Specialist's note was reviewed and I agree with the note.
Comment:
Plan:
Continue IV Lasix diuresis. Weight is close to dry weight.
Continue GDMT for nonischemic cardiomyopathy
Await echocardiogram currently pending
His creatinine is stable with history chronic renal insufficiency.
Hopeful discharge next 24 hours and transition to oral diuretics.
Original Note:
Today's Communication / Plan
-
Cont Lasix 40 mg IV daily
Follow labs
Impression / Plan
-
PCP: Casandra Mercado
Lemon Grower: Dr. Orlando Randhawa
Impression:
Admitted with SOB and acute HF 11/13/23
Acute on chronic HFrEF
CARLOS on CKD 3b
Chest pain with serially normal Troponins
Paroxysmal atrial fibrillation
s/p CV 08/12/2023
Chronic anticoagulation on Eliquis
Non-ischemic cardiomyopathy EF 20-25% by echo 05/28/21
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
Dual-chamber Medtronic ICD 06/2021
Hypertension
Hyperlipidemia
Prostate cancer status post prostatectomy
Akj-crystye-lwzjyspnm diabetes
Echo 05/28/2021: EF 20 to 25% with global hypokinesis. Left ventricle mildly dilated. Left atrial dilation. Mildly reduced right systolic function. Mild MR.
Plan:
-Weight down 14 lbs overnight, but initial weight was from an ER bed scale so doubt that was accurate. Regardless, patient is negative by I&O. Cont Lasix 40 mg IV daily. Patient was not taking a diuretic prior to admission.
-EF was 20-25% by echo 05/28/21. CM regimen includes Jardiance 25 mg daily, Toprol XL 100 mg daily and Entresto 49/51 mg BID. CM meds have been continued except Jardiance changed to Farxiga for formulary requirements.
-Cre improving with diuresis. Patient with known CKD 3b and baseline Cre 1.5. Follow labs
-Chest pain on admission and Troponin serially normal. Patient had nonobstructive CAD by cath 2021.
-Patient with known paroxysmal Afib. Device checked 11/13/23 and no Afib noted. Last recurrence of Afib was 08/12/23 and patient was CV'd in ER at that time.
-Cont Eliquis 5 mg BID (age 73, Cre 1.6, wt 88.96 kg)
-Several episodes of NSVT and 1 episode of SVT on ICD check 11/13/23. Overnight tele reviewed by me, ventricular bigeminy and triplets seen. Potassium 4.3 and magnesium 2.1. Follow lytes.
HPI 11/13/2023: Patient is a 73-year-old male with past medical history significant for nonischemic cardiomyopathy, dual-chamber Medtronic ICD, nonobstructive coronary artery disease on cardiac catheterization in 2021, paroxysmal atrial fibrillation
on chronic anticoagulation, hypertension, hyperlipidemia, type 2 diabetes, CKD stage IIIb who presents to emergency department from primary care office with complaints of intermittent chest discomfort x 2 to 3 days as well as progressively worsening
dyspnea on exertion. Patient and his are on an extended cruise in late September through mid October. Around 11/06/2023 he started noting worsening shortness of breath with intermittent dizziness/lightheadedness. Now has new two-pillow
orthopnea and chest pressure/heaviness D-dimer negative. proBNP elevated at 14,700. Chest x-ray moderate elevation of left hemidiaphragm associated with left basilar segment segmental atelectasis. Troponin x 1 negative. ECG showed sinus rhythm
with PVCs with ventricular bigeminy. Interrogation of his ICD shows upward trending OptiVol fluid index since early October. He has also had multiple brief episodes of NSVT last on 11/06/2023.
Progress Note - Lemon Grower
Subjective
Date of Service: November 14, 2023
Less SOB
Objective
Labs:
11/14/23 05:59
Labs
Hgb 14.0 g/dL (13.0-18.0) 11/14/23 05:59
Hct 41.7 % (39.0-52.0) 11/14/23 05:59
Plt Count 189 10^3/uL (130-400) 11/14/23 05:59
Sodium Cancelled 11/14/23 05:59
Potassium Cancelled 11/14/23 05:59
BUN Cancelled 11/14/23 05:59
Creatinine Cancelled 11/14/23 05:59
Glucose Cancelled 11/14/23 05:59
Troponins
11/13/23 11/13/23 11/13/23
09:42 12:36 17:21
Troponin I 0.023 0.025 Cancelled
11/13/23
22:36
Troponin I 0.033
Vital Signs and I&O:
Vital Signs
Temp Pulse Resp BP Pulse Ox
97.4 F 109 28 134/98 94
11/14/23 07:32 11/14/23 08:33 11/14/23 07:32 11/14/23 08:33 11/14/23 07:32
Vital Signs
Temp Pulse Resp BP Pulse Ox
97.4 F 109 28 134/98 94
11/14/23 07:32 11/14/23 08:33 11/14/23 07:32 11/14/23 08:33 11/14/23 07:32
Intake & Output
11/12/23 11/13/23 11/14/23 11/15/23
06:59 06:59 06:59 06:59
Intake Total 240 / 240
Output Total 1525 / 1525
Balance -1525 / -1525 240 / 240
[2023-11-14 10:47] LABS: ALT (SGPT) 33 U/L (0-50); AST (SGOT) 15 U/L (17-59); Albumin 4.2 g/dl (3.5-5.0); Alkaline Phosphatase 113 U/L (38-126); Blood Urea Nitrogen 37 mg/dl (9-20); Calcium 9.4 mg/dl (8.4-10.2); Carbon Dioxide 22 mmol/L (22-30); Chloride 103 mmol/L (98-107); Estimated Creatinine Clearance 45 ml/min; Glucose 145 mg/dl (70-99); Potassium 4.3 mmol/L (3.5-5.1); Sodium 142 mmol/L (135-145); Total Bilirubin 1.4 mg/dl (0.2-1.3); Total Protein 6.5 g/dl (6.3-8.2); eGFR 44.65
--- NOTE | 2023-11-14 10:50 | PTOTSP ---
Pt is feeling better today. He is independent with bed mobility, transfers, and ambulation without any assistive device on level surface and stairs. No skilled PT needs were identified. PT will sign off now.
[2023-11-14] MEDS: TYLENOL 650 MG PO (12:24)
[2023-11-14 12:29] LABS: Glucose - Point of Care 164 mg/dl (70-99)
--- NOTE | 2023-11-14 15:40 | CARDSERVLU ---
Echocardiogram with Lumason completed after protocol screening completed. Allergies verified.
Patent IV site: ____Rt AC_
IV site flushed with 0.9% NaCl pre and post administration.
Diluted bolus method utilized to enhance visualization of ventricular patel.
Total volume given: __3.0 mL
Patient tolerated all procedures well without complications.
--- NOTE | 2023-11-14 16:02 | W.PN.UPDATE ---
Update Note
Progress Note Update
Patient with 10 seconds of NSVT at 1458. Potassium was 4.3 this morning and magnesium was 2.1 yesterday morning. BP and HR stable after his usual dose of Toprol XL 100 mg given this morning. Will give another dose of Toprol XL 50 mg now. Recheck BMP
and magnesium. Check ECG. Several episodes of NSVT and 1 episode of SVT on ICD check 11/13/23. Echo pending, EF was 20-25% by echo 05/28/21.
[2023-11-14] MEDS: TOPROL XL 50 MG PO (16:28)
--- NOTE | 2023-11-14 16:50 | CM ---
Alert awake oriented patient who lives with his Zora who lives in a 2 story home with 1 step to enter and 12 steps to bed and bathroom. He is independent driving and in all activities of daily living.
DH VN hx /No SNF hx
Hr uses a walker
Pharmacy [facility]
PCP DR Mercado
PLAN Home no anticipated needs
[2023-11-14 17:04] LABS: Glucose - Point of Care 106 mg/dl (70-99)
[2023-11-14] MEDS: LIPITOR 10 MG PO (17:38)
[2023-11-14 18:29] LABS: Blood Urea Nitrogen 43 mg/dl (9-20); Calcium 8.8 mg/dl (8.4-10.2); Carbon Dioxide 22 mmol/L (22-30); Chloride 100 mmol/L (98-107); Estimated Creatinine Clearance 42 ml/min; Glucose 204 mg/dl (70-99); Magnesium 1.9 mg/dl (1.6-2.3); Potassium 4.1 mmol/L (3.5-5.1); Sodium 138 mmol/L (135-145); eGFR 41.52
[2023-11-14 21:37] LABS: Glucose - Point of Care 121 mg/dl (70-99)
[2023-11-15 03:06] VITALS: BP 122/70
[2023-11-15 05:36] LABS: Hematocrit 44.6 % (39.0-52.0); Hemoglobin 15.2 g/dL (13.0-18.0); Mean Corp Hgb Conc. 34.1 g/dL (33.0-37.0); Mean Corpuscular Hgb 29.5 pg (27.0-31.0); Mean Corpuscular Volume 86.6 fL (80.0-94.0); Mean Platelet Volume 11.1 fL (7.4-10.4); Platelet Count 178 10^3/uL (130-400); Red Blood Cell Count 5.15 10^6/uL (4.70-6.10); Red Cell Dist. Width 14.3 % (11.5-14.5); White Blood Cell Count 7.4 10^3/uL (4.8-10.8)
[2023-11-15 05:53] VITALS: BMI 25.5
[2023-11-15 06:06] LABS: Blood Urea Nitrogen 44 mg/dl (9-20); Carbon Dioxide 22 mmol/L (22-30); Chloride 102 mmol/L (98-107); Estimated Creatinine Clearance 48 ml/min; Glucose 150 mg/dl (70-99); Magnesium 2.1 mg/dl (1.6-2.3); Potassium 4.3 mmol/L (3.5-5.1); Sodium 141 mmol/L (135-145); eGFR 48.25
[2023-11-15 07:22] LABS: Glucose - Point of Care 160 mg/dl (70-99)
[2023-11-15] MEDS: ENTRESTO 49 MG/51 MG 1 TAB PO (07:47)
[2023-11-15] MEDS: FARXIGA 10 MG PO (07:47)
[2023-11-15] MEDS: TOPROL XL 100 MG PO (07:47)
[2023-11-15] MEDS: NOVOLOG FLEXPEN-LOW RESISTANCE SC (07:47)
[2023-11-15] MEDS: COLACE 100 MG PO (07:48)
[2023-11-15] MEDS: AMARYL 4 MG PO (07:48)
[2023-11-15] MEDS: ELIQUIS 5 MG PO (07:48)
[2023-11-15] MEDS: LASIX 40 MG IV (07:48)
[2023-11-15 07:50] VITALS: BP 161/79
[2023-11-15] MEDS: ASPIR LOW (ENTERIC COATED) 81 MG PO (07:55)
--- NOTE | 2023-11-15 09:38 | PN.CDI ---
CDI
- -
CDI:
Physician Documentation Request
Admit Date: 11/13/23 13:26
Dear Doctor Eamon,
Please review the following and provide your response in the progress notes.
Clinical Indicators:
- 11/13 PN 'Acute on chronic mixed CHF'
- 11/13 Cardiology 'Acute on chronic HFrEF'
- 11/13 Echo EF 15%
- 'Severely reduced left ventricular systolic function'
- 'Stage I diastolic dysfunction suggestive of abnormal relaxation'
In an attempt to clarify potentially conflicting documentation, please clarify the type of CHF:
Acute on chronic HFrEF
Acute on chronic combined systolic and diastolic CHF
Other
Use of terms such as suspected, likely, concern for, or probable (associated with a specific diagnosis that is being evaluated, monitored, or treated as if it exists) are acceptable and can be coded in the inpatient setting, when documented at the
time of discharge.
Thank you,
Yash Gould RN
CDI Specialist
Please use your independent medical judgment in providing your response.
--- NOTE | 2023-11-15 09:44 | W.PN.HOSP.TC ---
Addendum entered and electronically signed by Serena Knutson MD 11/15/23 16:29:
total DC time 38 min
Addendum entered and electronically signed by Serena Knutson MD 11/15/23 11:09:
# Acute on chronic HFrEF
Original Note:
Today's Communication/Plan
-
see A/P
Assessment / Plan
Assessment / Plan
HPI: 73-year-old male PMH hypertrophic cardiomyopathy with EF 20/25% in May 2021, paroxysmal A-fib status post cardioversion in ER on Eliquis, chronic systolic CHF, HTN, HLD, DM2, prostate cancer status post radical prostatectomy, obesity; p/w
shortness of breath, orthopnea and dyspnea on exertion. He also c/o chest pressure.
A/P:
# MOHAN, orthopnea, chest pain, Wt gain likely due to Acute on chronic mixed CHF
# NSVT
# h/o non-occlusive CAD
# h/o NICM, LVEF 20-25
# Dual chamber AICD
# Acute hypoxic respiratory insufficiency, resolved
Troponin 0.033
Placed on 2L NC, weaned to RA
Cont IV lasix 40 daily, daily weight
Continue VEHICLE DAMAGE APPRAISER Entresto and Toprol with holding parameter
Echo noted worsening EF at 15%, Severe diffuse global hypokinesis with possible apical akinesis. Stage I diastolic dysfunction
DCA card on board
# CARLOS suspect Cardiorenal syndrome.
# H/o CKD 3b
SCr 1.7 -> 1.5, baseline around 1.2
Monitor SCr closely while on IV lasix
# Paroxysmal AF on chronic AC
# Status post cardioversion
Continue Eliquis 5 mg twice daily
Cont metoprolol XR 100 mg daily
# Essential HTN
# HLD
Continue atorvastatin 10 mg daily
# T2DM: held metformin
HgbA1c 7.4%
Hold metformin, Trulicity
Continue Jardiance, glimepiride
ISS
# Prostate cancer s/p radical prostatectomy October 2019
DVT prophylaxis-Continue VEHICLE DAMAGE APPRAISER Eliquis
Full code
DW Card team
Anticipated Discharge: 24 - 48 hours
Subjective/Interval History
-
Date of Service: November 15, 2023
Objective Data
-
Labs:
Laboratory Results
11/15/23
05:17
WBC 7.4
Hgb 15.2
Hct 44.6
Plt Count 178
Sodium 141
Potassium 4.3
Chloride 102
Carbon Dioxide 22
BUN 44 H
Creatinine 1.5 H
Glucose 150 H
Calcium 9.0
Vital Signs:
Vital Signs
Temp Pulse Resp BP Pulse Ox
36.6 C 57 16 161/79 97
11/15/23 07:50 11/15/23 07:50 11/15/23 07:50 11/15/23 07:50 11/15/23 07:50
I&O
11/14/23 11/15/23 11/16/23
06:59 06:59 06:59
Intake Total 980 / 980
Output Total 1525 / 1525
Balance -1525 / -1525 980 / 980
Review of Systems
-
Cardiac: Reports Orthopnea; Denies Chest Pain
Physical Exam
-
General: Well Developed, Well Nourished, No Apparent Distress, Comfortable and Conversant; Negative Respiratory Distress
HEENT: Normocephalic, Atraumatic, Nose Appears Normal and Ears Appear Normal; Negative Oxygen
Respiratory: Clear to Auscultation and Non Labored Respirations; Negative Accessory Resp Muscle Use
Cardiac: Regular Rhythm and S1/S2
GI: Soft, Nontender, Nondistended and Normal Bowel Sounds
Skin: Warm and Dry
Neuro: Awake, Alert, Oriented, AO x 3 and Nonfocal/Grossly Intact
Psych: Calm and Intact Judgement/Insight
Data Reviewed
-
Medical Tests (Nuc Med, Echo etc): Report Reviewed by me (echo)
Labs: Labs Reviewed by me
--- NOTE | 2023-11-15 11:24 | W.PN.CARDCBS ---
Addendum entered and electronically signed by Dana Scott DO 11/15/23 17:10:
I saw and examined the patient.
The Signal System Testing Maintainer's note was reviewed and I agree with the note.
Comment: Patient seen and examined with cardiac PA. at bedside. Overall he is feeling better with improved shortness of breath and edema. No chest pain or pressure. Preadmission medications reviewed with patient and were both
pharmacists; reviewed discharge plan and medications
GEN: NAD. AAOx3
HEENT: mmm
LUNGS: Bronchovesicular breath sounds decreased bilaterally but no wheezes/crackles
CV: Regular, positive S1-S2. no murmur. +Devcie site
ABD: ND/NT + BS
EXT: No edema B/L
Plan:
Acute respiratory distress secondary to acute HFrEF
-Patient was not on diuretics at time of admission
-Has diuresed well with IV Lasix 40 mg daily. Transition to Lasix 40 mg daily with close outpatient monitoring
-Repeat echocardiogram again demonstrated severe systolic dysfunction with an EF of 15% with no hemodynamically significant valve pathology
-Will continue optimization of goal-directed medical therapy: Continue Entresto 49/51 mg twice daily and Toprol XL. Patient was on Toprol-XL 200 mg daily at time of admission; dose inadvertently reduced-will resume outpatient dose. Continue
Jardiance which was temporarily switched to Farxiga due to formulary restrictions
-Consider outpatient addition of Aldactone
-Repeat basic metabolic profile in 1 week
-Heart failure monitoring and symptoms reviewed
Non ischemic cardiomyopathy status post Medtronic ICD in 2021
-NSVT on tele 11/14/23 afternoon, patient was asymptomatic.
-Patient also noted to have several episodes of NSVT on ICD check on 11/13/23.
-Potassium was 4.2 and magnesium was 2.1.
-Patient was inadvertently placed on lower dose metoprolol succinate when compared to outpatient dose. Will resume Toprol XL 100 mg twice daily
-Monitor for recurrent ventricular arrhythmias through device.
-Could consider addition of amiodarone for further arrhythmia
-Chest pain on admission and Troponin serially normal.
-No further chest pain or pressure
-Patient had nonobstructive CAD by cath 2021.
-Continue medical therapy including atorvastatin. LDL 11/14/2023 52
-Consider outpatient stress test
-History of paroxysmal atrial fibrillation currently sinus
-device checked 11/13/23 and no Afib noted. Last recurrence of Afib was 08/12/23 and patient was CV'd in ER at that time.
-Cont Eliquis 5 mg BID (age 73, Cre 1.6, wt 88.96 kg)
History of type 2 diabetes mellitus with hemoglobin A1c 7.4%
-Continue outpatient medical therapy including Jardiance
-Goal normoglycemia
Will arrange for close heart failure follow-up. Patient and have requested transfer to [facility]
From a cardiovascular standpoint stable for discharge home
Original Note:
Today's Communication / Plan
-
Increase Toprol XL to 75 mg BID
Would d/c to home on Lasix 40 mg PO daily and check BMP in 1 week
Likely d/c to home today
Impression / Plan
-
PCP: Casandra Mercado
Histological Illustrator: Dr. Orlando Randhawa
Impression:
Admitted with SOB and acute HF 11/13/23
Acute on chronic HFrEF
CARLOS on CKD 3b
Chest pain with serially normal Troponins
Paroxysmal atrial fibrillation
s/p CV 08/12/2023
Chronic anticoagulation on Eliquis
Non-ischemic cardiomyopathy EF 20-25% by echo 05/28/21
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
Dual-chamber Medtronic ICD 06/2021
Hypertension
Hyperlipidemia
Prostate cancer status post prostatectomy
Ugu-yrntwsf-lseezfaal diabetes
NSVT
Echo 05/28/2021: EF 20 to 25% with global hypokinesis. Left ventricle mildly dilated. Left atrial dilation. Mildly reduced right systolic function. Mild MR.
Echo 11/14/23: EF 15%, severe diffuse global hypokinesis with possible apical akinesis, mild to mod LVH, stage I diastolic dysfunction
Plan:
-NSVT on tele 11/14/23 afternoon, patient was asymptomatic. Patient also noted to have several episodes of NSVT on ICD check on 11/13/23. Potassium was 4.2 and magnesium was 2.1. Outpatient dose of Toprol XL 100 mg daily ordered and additional dose of
Toprol XL 50 mg x1 given 11/14/23 PM. Will increase dose of Toprol XL to 75 mg BID starting 11/15/23 PM.
-Weight is down another 3 lbs overnight. Patient was diuresed with Lasix 40 mg IV daily. Patient was not taking diuretic prior to admission. Will transition to Lasix 40 mg PO daily upon d/c.
-EF was 20-25% by echo 05/28/21, but down a bit to 15% by echo 11/14/23. EF was read as 20-25% in 2021 but on relook appears to have been closer to 10 to 15% and was possibly worse than current study.
-CM regimen includes Jardiance 25 mg daily, of note Jardiance changed to Farxiga for formulary requirements.
-Cont Entresto 49/51 mg BID. CM meds have been continued except
-Cre continues to improve with diuresis, down to 1.5 on 11/15/23. Patient with known CKD 3b and baseline Cre 1.5. Check BMP in 1 week as an outpatient with new Lasix dose upon d/c
-Chest pain on admission and Troponin serially normal. Patient had nonobstructive CAD by cath 2021.
-Patient with known paroxysmal Afib. Device checked 11/13/23 and no Afib noted. Last recurrence of Afib was 08/12/23 and patient was CV'd in ER at that time.
-Cont Eliquis 5 mg BID (age 73, Cre 1.6, wt 88.96 kg)
-Will arrange for a 1 week HF follow up appt
HPI 11/13/2023: Patient is a 73-year-old male with past medical history significant for nonischemic cardiomyopathy, dual-chamber Medtronic ICD, nonobstructive coronary artery disease on cardiac catheterization in 2021, paroxysmal atrial fibrillation
on chronic anticoagulation, hypertension, hyperlipidemia, type 2 diabetes, CKD stage IIIb who presents to emergency department from primary care office with complaints of intermittent chest discomfort x 2 to 3 days as well as progressively worsening
dyspnea on exertion. Patient and his are on an extended cruise in late September through mid October. Around 11/06/2023 he started noting worsening shortness of breath with intermittent dizziness/lightheadedness. Now has new two-pillow
orthopnea and chest pressure/heaviness D-dimer negative. proBNP elevated at 14,700. Chest x-ray moderate elevation of left hemidiaphragm associated with left basilar segment segmental atelectasis. Troponin x 1 negative. ECG showed sinus rhythm
with PVCs with ventricular bigeminy. Interrogation of his ICD shows upward trending OptiVol fluid index since early October. He has also had multiple brief episodes of NSVT last on 11/06/2023.
Progress Note - Histological Illustrator
Subjective
Date of Service: November 15, 2023
He feels well and is hoping to go home
Objective
Labs:
11/15/23 05:17
11/15/23 05:17
Labs
Hgb 15.2 g/dL (13.0-18.0) 11/15/23 05:17
Hct 44.6 % (39.0-52.0) 11/15/23 05:17
Plt Count 178 10^3/uL (130-400) 11/15/23 05:17
Sodium 141 mmol/L (135-145) 11/15/23 05:17
Potassium 4.3 mmol/L (3.5-5.1) 11/15/23 05:17
BUN 44 mg/dl (9-20) H 11/15/23 05:17
Creatinine 1.5 mg/dL (0.7-1.3) H 11/15/23 05:17
Glucose 150 mg/dl (70-99) H 11/15/23 05:17
Troponins
11/13/23 11/13/23 11/13/23
09:42 12:36 17:21
Troponin I 0.023 0.025 Cancelled
11/13/23
22:36
Troponin I 0.033
Vital Signs and I&O:
Vital Signs
Temp Pulse Resp BP Pulse Ox
97.9 F 57 16 161/79 97
11/15/23 07:50 11/15/23 07:50 11/15/23 07:50 11/15/23 07:50 11/15/23 07:50
Vital Signs
Temp Pulse Resp BP Pulse Ox
97.9 F 57 16 161/79 97
11/15/23 07:50 11/15/23 07:50 11/15/23 07:50 11/15/23 07:50 11/15/23 07:50
Intake & Output
11/13/23 11/14/23 11/15/23 11/16/23
06:59 06:59 06:59 06:59
Intake Total 980 / 980
Output Total 1525 / 1525
Balance -1525 / -1525 980 / 980
Physical Exam
Physical Exam
GEN: NAD. AAOx3
HEENT: EOMI, MMM
LUNGS: No audible wheeze
CV: Paced on tele
ABD: ND
EXT: No edema B/L
NEURO: Gross non-focal
SKIN: No rash
[2023-11-15 11:26] VITALS: BP 125/78
[2023-11-15 11:45] LABS: Glucose - Point of Care 166 mg/dl (70-99)
[2023-11-15] MEDS: NOVOLOG FLEXPEN-LOW RESISTANCE 1 UNITS SC (12:18)
--- NOTE | 2023-11-15 14:41 | W.HF.CON ---
Heart Failure
- LV Function
Left ventricular function study result: LV Ejection fraction </= 35%
Ejection Fraction Percentage: 15-20
- ARNI
Patient already on ARNI: Yes
- ACEI/ARB
Patient already on ACEI/ARB: No
Heart Failure ACEI/ARB Not Indicated: Patient ordered/on ARNI
- Beta Nestor
Patient already on Evidence Based Beta Nestor: Yes
- Mineralocorticord Receptor Antagonist
Patient already on MRA: No
Heart Failure MRA Contraindication: Hypotension
- SGLT-2 Inhibitor
Patient already on SGLT-2 Inhibitor: Yes
- Afib Anticoagulation
Patient already on Anticoagulation for Afib: Yes
- NYHA CHF Classification
NYHA CHF Classification Level: Class III - Symptoms w/ min exertion, interferes w/ nml daily activity
- ACC/AHA Stage
ACC/AHA Stage: Stage C: Symptomatic Heart Failure
[2023-11-15 15:52] VITALS: BP 128/66
--- NOTE | 2023-11-15 16:02 | W.PN.UPDATE ---
Update Note
Progress Note Update
Medication reconciliation at time of admission was incorrect. Patient was taking Toprol XL 100 mg twice daily prior to admission and the med rec said he was taking it daily. Patient's dose was Toprol XL 100 mg daily throughout this admission.
Dosing has been corrected on current orders and also on discharge medication list. Patient is also expressing a desire to transfer cardiology care from Dr. Randhawa to Dr. Scott
--- NOTE | 2023-11-15 16:18 | W.DCSUMMARY ---
Discharge Summary
Discharge Data
Date of Admission: 11/13/23
Date of Discharge: 11/15/23
-
Pending Results: No
Hospital Course
Principal Diagnosis:
Acute on chronic systolic heart failure
Acute kidney injury (CARLOS) due to cardiorenal syndrome
Chronic Diagnoses:�
History of nonocclusive coronary artery disease
Nonischemic cardiomyopathy
status post dual chamber AICD placement
Paroxysmal atrial fibrillation on chronic Eliquis and metoprolol
History of cardioversion
Chronic kidney disease stage III
Essential hypertension
Hyperlipidemia
Rfn-koifvky-iywoqasmk diabetes
Prostate cancer s/p radical prostatectomy October 2019
Consultations:�
Cardiology
Procedures:�
None
Clinical course:�
This is a 73-year-old male with past medical history as stated above, who presented with shortness of breath, orthopnea and dyspnea on exertion.
Problem 1:
Shortness of breath, orthopnea and dyspnea on exertion due to acute on chronic systolic heart failure.
He was treated with IV Lasix 40 mg daily while in the hospital, and he can continue with oral Lasix 40 mg daily following discharge.
He can continue with his prior to admission Entresto and Toprol.
His echo this admission noted worsening EF at 15%, severe diffuse global hypokinesis with possible apical akinesis, also stage I diastolic dysfunction.
Problem 2:
CARLOS due to cardiorenal syndrome.
His creatinine down trended from 1.7 to 1.5 with IV Lasix.
His baseline serum creatinine is around 1.2.
He can monitor his serum creatinine with his PCP outpatient
As for the rest of his medical problems, they were stable during his hospital stay.
Discharge Plan
-
Patient Disposition: Home (Routine Discharge)
Discharge Diagnosis/Procedures: Shortness of breath due to acute on chronic heart failure
Condition: Fair
Diet: As tolerated, Low Fat, Low Cholesterol, Low Sodium and Restrict fluids to 48 oz
Activity: As tolerated
Driving Restrictions: As prior to admission
Blood Work: BMP in 1 week with your PCP
Specialty Instructions: Weigh Daily- Call MD for wt gain/loss 3 lbs overnight/5 lbs in 1 week
Instructions: *[facility] Heart Failure Instructions
Referrals:
Casandra Mercado MD [Family Provider] - in less than 1 week
Dana Scott DO [Active] - 11/20/23 1:40 pm (You have an appt to see Dr. Scott's nurse practitioner, Meka, at the [place] office on 11/20/23 at 1:40 PM. You will then follow up with Dr. Scott 4-5 weeks later. Please call [phone]
if you need to reschedule.)
Prescriptions:
New
furosemide 40 mg Tablet
40 mg PO DAILY Qty: 30 11RF
metoprolol succinate 100 mg Tablet Extended Release 24 Hr
100 mg PO BID Qty: 60 11RF
Continued
atorvastatin 10 MG tablet
10 mg PO QPM
glimepiride 4 MG tablet
4 mg PO BID
Jardiance 25 MG tablet
25 mg PO DAILY
aspirin 81 MG tablet,delayed release (DR/EC)
81 mg PO DAILY
docusate sodium [Colace] 100 MG capsule
100 mg PO BID
Eliquis 5 mg Tablet
5 mg PO BID
metformin 1,000 MG tablet
1,000 mg PO DAILY
Entresto 49-51 mg Tablet
1 tab PO BID
Trulicity 3 mg/0.5 mL Pen Injector
3 mg SC TU
Discontinued
metoprolol succinate 100 MG tablet extended release 24 hr
100 mg PO DAILY
Discharge Orders:
Discharge Patient (As Directed); Ordered 11/15/23
Ordered By: Serena Knutson
Discharge Date and Time
Print Language: IRISH
--- NOTE | 2023-11-15 16:28 | CM ---
MD entered order for discharge.
Spoke with pt and .
Offered VN he declined need.
CM card given
PLAN Home no needs .
== END 2023-11-15 16:52 | disposition home or self-care (01) | DRG 291 ==
LOC: 3 WEST ACU 13:26
PROVIDERS: Clinical Nurse Specialist Family Health; Physician Assistant Medical; ADMITTING PHYSICIAN Internal Medicine; ATTENDING PHYSICIAN Internal Medicine; CONSULT PHYSICIAN Nuclear Medicine Nuclear Cardiology; EMERGENCY PHYSICIAN Emergency Medicine; FAMILY PHYSICIAN Internal Medicine
DX: I13.0 Hypertensive heart and chronic kidney disease with heart failure and stage 1 through stage 4 chronic kidney disease, or unspecified chronic kidney disease (principal); I50.23 Acute on chronic systolic (congestive) heart failure; I47.20 Ventricular tachycardia, unspecified; J98.11 Atelectasis; I47.10 Supraventricular tachycardia, unspecified; N17.9 Acute kidney failure, unspecified; E11.22 Type 2 diabetes mellitus with diabetic chronic kidney disease; E66.9 Obesity, unspecified; N18.32 Chronic kidney disease, stage 3b; I25.10 Atherosclerotic heart disease of native coronary artery without angina pectoris; I42.2 Other hypertrophic cardiomyopathy; E78.00 Pure hypercholesterolemia, unspecified; Z85.46 Personal history of malignant neoplasm of prostate; I49.3 Ventricular premature depolarization; I48.0 Paroxysmal atrial fibrillation; R09.02 Hypoxemia; R06.89 Other abnormalities of breathing; R01.1 Cardiac murmur, unspecified; Z68.27 Body mass index [BMI] 27.0-27.9, adult; Z91.119 Patient's noncompliance with dietary regimen due to unspecified reason; Z79.01 Long term (current) use of anticoagulants; Z79.82 Long term (current) use of aspirin; Z79.84 Long term (current) use of oral hypoglycemic drugs; Z79.899 Other long term (current) drug therapy; Z90.79 Acquired absence of other genital organ(s); Z95.810 Presence of automatic (implantable) cardiac defibrillator; Z82.49 Family history of ischemic heart disease and other diseases of the circulatory system; Z83.3 Family history of diabetes mellitus
CPT/HCPCS: 71046; 80048; 80053; 80061; 82962; 83036; 83735; 83880; 84484; 85025; 85027; 85379; 90662; 93005; 93306; 96374; 97162; 97166; 99285; G0008; Q9950

== ENCOUNTER → 2024-02-22 09:34 | Outpatient (REF) | payer MEDICARE, OTHER, SELFPAY ==
--- NOTE | 2024-02-22 10:43 | CARDSERVLU ---
Echocardiogram with Lumason completed after protocol screening completed. Allergies verified.
Patent IV site Left forearm 22 G PC inserted by Eleazar Dsouza IV team ____
IV site flushed with 0.9% NaCl pre and post administration.
Diluted bolus method utilized to enhance visualization of ventricular patel.
Total volume given: __3__ mL
Patient tolerated all procedures well without complications.
Heplock D/C ed by [employer] Regulatory Affairs Strategy Specialist. Pt offers no complaints.
== END ==
LOC: RCS 09:34
PROVIDERS: ATTENDING PHYSICIAN Nurse Practitioner; FAMILY PHYSICIAN Internal Medicine
DX: I42.9 Cardiomyopathy, unspecified (principal); I50.21 Acute systolic (congestive) heart failure
CPT/HCPCS: 93306

== ENCOUNTER 2024-02-23 20:52 | Inpatient (IN) | payer MEDICARE, OTHER, SELFPAY ==
[2024-02-23] VITALS (14 sets, daily range): BP systolic 104–152; BP diastolic 57–104
--- NOTE | 2024-02-23 15:10 | ED.GENMED ---
ED Provider Triage
<Travis Liu PA-C - Last Filed: 02/23/24 15:11>
-
Patient seen by provider in Triage?: Seen in Triage
73-year-old male has pacer defibrillator presented with lower back pain but on his plane felt like his defibrillator activated. He denies any current chest pain or shortness of breath. He is a diabetic. He had echocardiogram yesterday. He is
followed with cardiology here
Pacemaker interrogated through triage. Troponin EKG and labs pending
Seen by provider in triage warrants further assessment
History of Present Illness
<Travis Liu PA-C - Last Filed: 02/23/24 15:11>
General
Chief Complaint: Chest Problem
Time Seen by Provider: 02/23/24 18:02
<Aaron Bear Jr., PA-C - Last Filed: 02/23/24 20:12>
General
Source: patient
Exam Limitations: none
Nursing documentation reviewed up to this point in time: agreed with
History of Present Illness
History of Present Illness:
73-year-old male with past medical history of paroxysmal A-fib CHF, pacemaker and ICD in place presenting to the emergency department initially with concerns of back pain but had a shock to his chest just prior to arrival he believes his ICD went
off. This was interrogated during triage and he was found to be in V-fib and was shocked prior to arrival. He otherwise feels much better while resting here still ongoing back pain. Denies any history of back pain no change in bowel or bladder
function no numbness or weakness to lower extremities no fevers. Believes that he may have twisted his knee earlier may have hurt his back in the process.
Past History
<RADHA Pham Last Filed: 02/23/24 15:11>
Past History
ED Past Medical History: Arrthythmia (Paroxysmal atrial fibrillation), Cancer (Prostate cancer status post radical prostatectomy 2019), CHF (Cardiomyopathy EF of 20 to 25%), HTN, Hypercholesterolemia and NIDDM
ED Past Surgical History: Appendectomy (AICD June 2021) and Urological (Radical prostatectomy October 2019)
Social History
Tobacco: Non-smoker
Alcohol: None
Drug: None
Personal:
Living: with family
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
Family History
Family History: Other (Noncontributory)
Review of Systems
<Aaron Bear Jr., PA-C - Last Filed: 02/23/24 20:12>
Review of Systems
Allergies reviewed?: Yes
All Other Systems: ROS reviewed and negative except as documented in HPI and ROS
Phy Exam
<Aaron Bear Jr., PA-C - Last Filed: 02/23/24 20:12>
Physical Exam
Physical Exam:
GENERAL: Alert , in no apparent distress
EYE: pupils equal and reactive
NECK: Supple, no significant adenopathy.
ENT: o/p clr, mmm.
CARDIAC: Regular rate and rhythm .
LUNGS: Clear breath sounds bilaterally, no acute respiratory distress, no wheezes/rales/rhonchi
ABDOMEN: Soft, without focal tenderness, no r/g, no cvat
NEUROLOGICAL: Alert and oriented, no focal neuro deficits
SKIN: Warm and dry, skin intact.
MUSCULOSKELETAL: No edema, well perfused.
PSYCH: Normal and appropriate interaction.
Course
<Travis Liu PA-C - Last Filed: 02/23/24 15:11>
Orders/Labs/Results
Orders:
Orders
02/23/24 14:44
Electrocardiogram (*1) Urgent
Reason for Study: Other
Other Reason for Exam: defib firing
EKG- Treatment ONCE
02/23/24 15:25
Complete Blood Count/With Diff Urgent
Comprehensive Metabolic Panel Urgent
Magnesium Urgent
Comment: ADD ON
Troponin I Urgent
02/23/24 18:53
Electrocardiogram (*1) Urgent
Reason for Study: Chest Pain
EKG- Treatment ONCE
02/23/24 18:55
CT Chest/abd/pelvis Angio W/wo Urgent
Comment:
Reason For Exam: back chest
02/23/24 19:03
NT-proBNP Urgent
Comment: ADD ON
Troponin I Urgent
02/23/24 19:06
Interrogate Pacemaker- Treatment ONCE
02/23/24 19:15
Add On- LAB Urgent
Tests Added?: BNP
02/23/24 19:17
Amiodarone [Cordarone] 150 mg Dextrose 5%/Water 100 ml [D5w] 100 ml IV NOW
Amiodarone [Cordarone] 900 mg DEXTROSE 5% PVC-free BAG [D5W PVC-free BAG] 500 ml IV NOW
Initial Dose in mg/min:: 1
Duration of initial dose (hours):: 6
Subsequent dose in mg/min:: 0.5
Duration of subsequent dose (hours):: 18
Maximum dose in mg/min:: 1
Hold and notify provider if:: Heart rate < 60 BPM or SBP < 90 mmHg or MAP < 60 mmHg
02/23/24 19:22
Add On- LAB Urgent
Tests Added?: magnesium
02/23/24 19:38
Metoprolol [Lopressor] 2.5 mg IV NOW STA
Abnormal Lab Results
02/23/24
15:25
MPV 11.4 H fL
(7.4-10.4)
Absolute Neuts (auto) 7.4 H 10^3/uL
(1.4-6.5)
Absolute Lymphs (auto) 0.8 L 10^3/uL
(1.2-3.4)
Absolute Monos (auto) 0.7 H 10^3/uL
(0.1-0.6)
Neutrophils % 82.1 H %
(42.2-75.2)
Lymphocytes % 8.7 L %
(20.5-51.1)
BUN 38 H mg/dl
(9-20)
Creatinine 1.9 H mg/dL
(0.7-1.3)
Glucose 225 H mg/dl
(70-99)
AST 16 L U/L
(17-59)
02/23/24 15:25
02/23/24 15:25
Vital Signs
Initial and Last Documented VS:
Initial Vital Signs
Temp Pulse Resp BP Pulse Ox
98.2 F 53 16 152/65 98
02/23/24 15:06 02/23/24 15:06 02/23/24 15:06 02/23/24 15:06 02/23/24 15:06
Last Documented Vital Signs
Temp Pulse Resp BP Pulse Ox
98.2 F 53 16 152/65 99
02/23/24 15:06 02/23/24 15:06 02/23/24 15:06 02/23/24 15:06 02/23/24 19:36
<Veronica Borjas DO - Last Filed: 02/23/24 20:00>
Orders/Labs/Results
Orders:
Orders
02/23/24 14:44
Electrocardiogram (*1) Urgent
Reason for Study: Other
Other Reason for Exam: defib firing
EKG- Treatment ONCE
02/23/24 15:25
Complete Blood Count/With Diff Urgent
Comprehensive Metabolic Panel Urgent
Magnesium Urgent
Comment: ADD ON
Troponin I Urgent
02/23/24 18:53
Electrocardiogram (*1) Urgent
Reason for Study: Chest Pain
EKG- Treatment ONCE
02/23/24 18:55
CT Chest/abd/pelvis Angio W/wo Urgent
Comment:
Reason For Exam: back chest
02/23/24 19:03
NT-proBNP Urgent
Comment: ADD ON
Troponin I Urgent
02/23/24 19:06
Interrogate Pacemaker- Treatment ONCE
02/23/24 19:15
Add On- LAB Urgent
Tests Added?: BNP
02/23/24 19:17
Amiodarone [Cordarone] 150 mg Dextrose 5%/Water 100 ml [D5w] 100 ml IV NOW
Amiodarone [Cordarone] 900 mg DEXTROSE 5% PVC-free BAG [D5W PVC-free BAG] 500 ml IV NOW
Initial Dose in mg/min:: 1
Duration of initial dose (hours):: 6
Subsequent dose in mg/min:: 0.5
Duration of subsequent dose (hours):: 18
Maximum dose in mg/min:: 1
Hold and notify provider if:: Heart rate < 60 BPM or SBP < 90 mmHg or MAP < 60 mmHg
02/23/24 19:22
Add On- LAB Urgent
Tests Added?: magnesium
02/23/24 19:38
Metoprolol [Lopressor] 2.5 mg IV NOW STA
Abnormal Lab Results
02/23/24
15:25
MPV 11.4 H fL
(7.4-10.4)
Absolute Neuts (auto) 7.4 H 10^3/uL
(1.4-6.5)
Absolute Lymphs (auto) 0.8 L 10^3/uL
(1.2-3.4)
Absolute Monos (auto) 0.7 H 10^3/uL
(0.1-0.6)
Neutrophils % 82.1 H %
(42.2-75.2)
Lymphocytes % 8.7 L %
(20.5-51.1)
BUN 38 H mg/dl
(9-20)
Creatinine 1.9 H mg/dL
(0.7-1.3)
Glucose 225 H mg/dl
(70-99)
AST 16 L U/L
(17-59)
02/23/24 15:25
02/23/24 15:25
Vital Signs
Initial and Last Documented VS:
Initial Vital Signs
Temp Pulse Resp BP Pulse Ox
98.2 F 53 16 152/65 98
02/23/24 15:06 02/23/24 15:06 02/23/24 15:06 02/23/24 15:06 02/23/24 15:06
Last Documented Vital Signs
Temp Pulse Resp BP Pulse Ox
98.2 F 53 16 152/65 99
02/23/24 15:06 02/23/24 15:06 02/23/24 15:06 02/23/24 15:06 02/23/24 19:36
<Aaron Bear Jr., PA-C - Last Filed: 02/23/24 20:12>
Orders/Labs/Results
Orders:
Orders
02/23/24 14:44
Electrocardiogram (*1) Urgent
Reason for Study: Other
Other Reason for Exam: defib firing
EKG- Treatment ONCE
02/23/24 15:25
Complete Blood Count/With Diff Urgent
Comprehensive Metabolic Panel Urgent
Magnesium Urgent
Comment: ADD ON
Troponin I Urgent
02/23/24 18:53
Electrocardiogram (*1) Urgent
Reason for Study: Chest Pain
EKG- Treatment ONCE
02/23/24 18:55
CT Chest/abd/pelvis Angio W/wo Urgent
Comment:
Reason For Exam: back chest
02/23/24 19:03
NT-proBNP Urgent
Comment: ADD ON
Troponin I Urgent
02/23/24 19:06
Interrogate Pacemaker- Treatment ONCE
02/23/24 19:15
Add On- LAB Urgent
Tests Added?: BNP
02/23/24 19:17
Amiodarone [Cordarone] 150 mg Dextrose 5%/Water 100 ml [D5w] 100 ml IV NOW
Amiodarone [Cordarone] 900 mg DEXTROSE 5% PVC-free BAG [D5W PVC-free BAG] 500 ml IV NOW
Initial Dose in mg/min:: 1
Duration of initial dose (hours):: 6
Subsequent dose in mg/min:: 0.5
Duration of subsequent dose (hours):: 18
Maximum dose in mg/min:: 1
Hold and notify provider if:: Heart rate < 60 BPM or SBP < 90 mmHg or MAP < 60 mmHg
02/23/24 19:22
Add On- LAB Urgent
Tests Added?: magnesium
02/23/24 19:38
Metoprolol [Lopressor] 2.5 mg IV NOW STA
Abnormal Lab Results
02/23/24
15:25
MPV 11.4 H fL
(7.4-10.4)
Absolute Neuts (auto) 7.4 H 10^3/uL
(1.4-6.5)
Absolute Lymphs (auto) 0.8 L 10^3/uL
(1.2-3.4)
Absolute Monos (auto) 0.7 H 10^3/uL
(0.1-0.6)
Neutrophils % 82.1 H %
(42.2-75.2)
Lymphocytes % 8.7 L %
(20.5-51.1)
BUN 38 H mg/dl
(9-20)
Creatinine 1.9 H mg/dL
(0.7-1.3)
Glucose 225 H mg/dl
(70-99)
AST 16 L U/L
(17-59)
02/23/24 15:25
02/23/24 15:25
Vital Signs
Initial and Last Documented VS:
Initial Vital Signs
Temp Pulse Resp BP Pulse Ox
98.2 F 53 16 152/65 98
02/23/24 15:06 02/23/24 15:06 02/23/24 15:06 02/23/24 15:06 02/23/24 15:06
Last Documented Vital Signs
Temp Pulse Resp BP Pulse Ox
98.2 F 53 16 152/65 99
02/23/24 15:06 02/23/24 15:06 02/23/24 15:06 02/23/24 15:06 02/23/24 19:36
<Aaron Bear Jr., PA-C - Last Filed: 02/23/24 20:12>
MDM/Problems Addressed
MDM/Problems Addressed:
73-year-old male presenting to the emergency department today initially with concerns of new onset back pain that seem to occur after he tripped and twisted his knee. He otherwise had a shock to his chest prior to arrival. He was confirmed to have
an ICD discharge prior to arrival that was confirmed on interrogation. During my assessment he had a brief syncopal episode and had a shock again. He then came to. Concerning the severe back pain with no history of back pain and the ongoing
potential arrhythmia CT angiogram was also ordered to ensure there is no aortic pathology. This was normal. Case discussed with cardiology was started on a bolus of amnio and a drip of amnio with significant improvement of ectopy. Patient was
seen by cardiology in the ER and will be admitted while on amnio and monitored.
<Veronica Borjas DO - Last Filed: 02/23/24 20:00>
*Critical Care Note
Total Time (30-74mins, 75-104mins- exclusive of procedures): 40
comment:
The high probability of a clinically significant, sudden or life threatening deterioration of the cardiovascular system(s) required my full and direct attention, intervention and personal management. The aggregate critical care time was 40 minutes.
This time is in addition to time spent performing reported procedures but includes the following:
[x] Data Review and interpretation
[x] Patient assessment and monitoring of vital signs
[x] Documentation
[x] Medication orders and management
ED Attending Note
<Travis Liu PA-C - Last Filed: 02/23/24 15:11>
-
Portions of this chart may have been created with voice recognition software.� Occasional wrong word or��sound alike� substitutions may have occurred due to the inherent limitations of voice recognition software.
<Veronica Borjas DO - Last Filed: 02/23/24 20:00>
ED Attending Note
Patient seen and examined by attending physician: Yes
I performed the substantive portion of visit, reviewed & personally made and approve the management plan that is documented in note by myself or CHRISTINA.: Yes
I performed a history and physical exam of patient and discussed management with resident, I reviewed resident's note and agree with documented findings and plan of care.: Yes
ED Attending Note:
73-year-old male with history of CHF, hypertension, A-fib on Eliquis and AICD presenting for lightheadedness and lower back pain. Patient arrives with , notes that this morning he fell, and has since been having lower back pain which was the
primary reason he came to the hospital. Additionally however, has been feeling lightheaded since 02/17. Upon arrival to the hospital, felt like someone punched him in the chest and was concerned that his AICD fired, which is never happened to him in
the past. Denies any chest pain or difficulty breathing. Denies abdominal pain, focal weakness of extremities or any numbness. Vitals significant for mild hypertension.
Patient initially seen by provider in triage, had laboratory analysis and had interrogation of his AICD given feeling in his chest upon arrival to the hospital. Interrogation shows a shock given for episode of V-fib. Once patient brought back to
hospital room, had a witnessed episode where he was shocked by his AICD, near syncopal episode. Cardiac and pulmonary exam otherwise unremarkable. Patient has since stabilized. In the setting of back pain and a firing of the AICD, patient sent
for CT of the chest. Cardiology consulted with Dr. Vasquez at bedside. Plan for amiodarone drip and bolus and admission for continued close cardiac monitoring.
Discharge Plan
Departure
Patient Disposition: Admit
Date of Disposition: 02/23/24
Time of Disposition: 20:11
Admit to: IMU
Admit to doctor: Suzanne
Presentation/result/management discussed w/ accepting MD/DO: Hospitalist
Patient with high blood pressure during this ER visit?: No
Condition: Fair
Covid-19: Not Applicable
Discharge Problem:
V-tach
Prescriptions:
No Action
atorvastatin 10 MG tablet
10 mg PO QPM
glimepiride 4 MG tablet
4 mg PO BID
Jardiance 25 MG tablet
25 mg PO DAILY
aspirin 81 MG tablet,delayed release (DR/EC)
81 mg PO DAILY
docusate sodium [Colace] 100 MG capsule
100 mg PO BID
Eliquis 5 mg Tablet
5 mg PO BID
metformin 1,000 MG tablet
1,000 mg PO DAILY
Entresto 49-51 mg Tablet
1 tab PO BID
Trulicity 3 mg/0.5 mL Pen Injector
3 mg SC TU
furosemide 40 mg Tablet
40 mg PO DAILY Qty: 30 11RF
metoprolol succinate 100 mg Tablet Extended Release 24 Hr
100 mg PO BID Qty: 60 11RF
Referrals:
Casandra Mercado MD [Family Provider] -
Interventions
Interventions:
*Risk Screen - Suicide Last Done: 02/23/24 15:06
*General Assessment Last Done: 02/23/24 19:52
*Neglect/Abuse Screening Last Done: 02/23/24 15:06
*ED COVID-19 Vaccine History Last Done: 02/23/24 19:52
ED- Cardiac Assessment Last Done: 02/23/24 19:35
ED- Pulmonary Assessment Last Done: 02/23/24 19:36
Discharge Date and Time
Print Language: FAROESE
[2024-02-23 15:40] LABS: % Basophils 0.3 % (0-2); % Eosinophils 0.9 % (0-6); % Immature Granulocytes 0.3 % (0-0.5); % Lymphocytes 8.7 % (20.5-51.1); % Monocytes 7.7 % (1.7-9.3); % Neutrophils 82.1 % (42.2-75.2); Absolute Eosinophils 0.1 10^3/uL (0-0.7); Absolute Lymphocytes 0.8 10^3/uL (1.2-3.4); Absolute Monocytes 0.7 10^3/uL (0.1-0.6); Absolute Neutrophils 7.4 10^3/uL (1.4-6.5); Hematocrit 47.5 % (39.0-52.0); Hemoglobin 15.8 g/dL (13.0-18.0); Mean Corp Hgb Conc. 33.3 g/dL (33.0-37.0); Mean Corpuscular Hgb 29.7 pg (27.0-31.0); Mean Corpuscular Volume 89.3 fL (80.0-94.0); Mean Platelet Volume 11.4 fL (7.4-10.4); Nucleated Red Blood Cells % 0 % (-); Platelet Count 214 10^3/uL (130-400); Red Blood Cell Count 5.32 10^6/uL (4.70-6.10); Red Cell Dist. Width 13.6 % (11.5-14.5)
[2024-02-23 15:50] LABS: ALT (SGPT) 21 U/L (0-50); AST (SGOT) 16 U/L (17-59); Albumin 4.9 g/dl (3.5-5.0); Alkaline Phosphatase 103 U/L (38-126); Blood Urea Nitrogen 38 mg/dl (9-20); Calcium 9.8 mg/dl (8.4-10.2); Carbon Dioxide 24 mmol/L (22-30); Chloride 98 mmol/L (98-107); Glucose 225 mg/dl (70-99); Potassium 4.5 mmol/L (3.5-5.1); Sodium 137 mmol/L (135-145); Total Bilirubin 0.7 mg/dl (0.2-1.3); Total Protein 7.4 g/dl (6.3-8.2); eGFR 36.33
[2024-02-23 16:01] LABS: Troponin I < 0.012 ng/ml
[2024-02-23] MEDS: CORDARONE 33.3 MG IV (19:38)
[2024-02-23 19:59] LABS: Magnesium 1.9 mg/dl (1.6-2.3)
--- NOTE | 2024-02-23 19:59 | CON.CAR ---
Consultation
Consultation Request
Date/Time Consultation Requested: February 23, 2024
Date/Time Consultation Performed: February 23, 2024
Requesting Provider: Emergency medicine
Performing Provider: Pedro
Reason for Consultation: Ventricular tachycardia with ICD shock
Medical History
-
Chief Complaint: Ventricular tachycardia with ICD shock
History of Present Illness:
73-year-old male who comes in with 2 days of back pain and then received an ICD shock which was associated with dizziness at home. When he arrived in the ER he was off telemetry and received a second shock. Review of his ICD interrogation [facility]
in the ER demonstrates ventricular tachycardia with relatively rapid retrograde conduction to the atrium and periods of V greater than a demonstrating ventricular tachycardia. It is also difficult to tell that he at times may also have dual
tachycardias with an underlying atrial tachycardia at vacillating rates. ATP failed and he ultimately received an ICD therapy in the ER as well as at home. VT is 212 bpm and his VF zone is programmed to greater than 188 bpm. Reviewed his recent
arrhythmia history demonstrating no recent H arrhythmias but a marked increase in nonsustained VT over the last 3 to 4 days and his arrhythmias today. Of note he had nonsustained ventricular tachycardia during his admission for congestive heart
failure in November and had his metoprolol increased to 100 mg daily. Those notes were reviewed. Originally seen by Dr. James at [facility] and switch his care to our group in 2021 after dual-chamber ICD implantation with Dr. Huddleston with
stable lead parameters. His QRS [place] is 106 to 116 ms and he does not describe significant heart for symptoms. His OptiVol was reviewed on the device which demonstrated no recent increase in OptiVol or or chest impedance.
At his last heart catheterization in 2021 he had nonobstructive CAD and has a nonischemic cardiomyopathy.
On his ECG in the ER he is in ventricular bigeminy with a right bundle right superior axis PVC suggesting an apical lateral exit of the left ventricle Joana site 7 8. He does have an inferoapical wall motion abnormality mid ventricle to base on
prior echocardiograms.
PCP: Casandra Mercado
Past medical history:
Admitted with SOB and acute HF 11/13/23
Acute on chronic HFrEF
CARLOS on CKD 3b
Chest pain with serially normal Troponins
Paroxysmal atrial fibrillation
s/p CV 08/12/2023hronic anticoagulation on Eliquis
Non-ischemic cardiomyopathy EF 20-25% by echo 05/28/21
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
Dual-chamber Medtronic ICD 06/2021
Hypertension
Hyperlipidemia
Prostate cancer status post prostatectomy
Rlj-zjnsmcw-uyuwrdgoe diabetes
NSVT
Echo 05/28/2021: EF 20 to 25% with global hypokinesis. Left ventricle mildly dilated. Left atrial dilation. Mildly reduced right systolic function. Mild MR.
Echo 11/14/23: EF 15%, severe diffuse global hypokinesis with possible apical akinesis, mild to mod LVH, stage I diastolic dysfunction
Past Medical History
Past Medical History: Arrhythmias and CHF
Social History
Tobacco: Non-Smoker
Alcohol: None
Drug: None
Personal:
Living: With Family
Employment: Not Employed
Family History
Family History: Reviewed & Not Pertinent
Allergies / Home Medications
Allergy/AdvReac Type Severity Reaction Status Date / Time
MAGALY Inhibitors Allergy severe Verified 11/13/23 09:23
cough
�Medication �Instructions �Recorded �Confirmed �Type
atorvastatin 10 mg tablet 10 mg PO QPM High cholesterol 10/22/19 11/13/23 History
empagliflozin 25 mg tablet 25 mg PO DAILY Diabetes 03/05/21 11/13/23 History
(Jardiance)
glimepiride 4 mg tablet 4 mg PO BID Diabetes 03/05/21 11/13/23 History
aspirin 81 mg tablet,delayed 81 mg PO DAILY Blood Clot 06/09/21 11/13/23 History
release Prevention/Tx
docusate sodium 100 mg capsule 100 mg PO BID Constipation 06/22/21 11/13/23 History
(Colace)
apixaban 5 mg tablet (Eliquis) 5 mg PO BID Blood Clot 08/12/23 11/13/23 History
Prevention/Tx
metformin 1,000 mg tablet 1,000 mg PO DAILY Diabetes 08/12/23 11/13/23 History
dulaglutide 3 mg/0.5 mL 3 mg SC TU Diabetes 11/13/23 11/13/23 History
subcutaneous pen injector
(Trulicity)
sacubitril 49 mg-valsartan 51 mg 1 tab PO BID Heart Failure 11/13/23 11/13/23 History
tablet (Entresto)
furosemide 40 mg tablet 40 mg PO DAILY Heart Failure #30 11/15/23 Rx
tabs
metoprolol succinate 100 mg 100 mg PO BID Heart 11/15/23 Rx
tablet,extended release 24 hr disease/condition #60 tabs
Review of Systems
-
All other systems: Negative unless noted
Cardiac: Palpitations
Abdomen/GI: No Symptoms
Musculoskeletal: No Symptoms
Physical Exam
Vital Signs
Temp Pulse Resp BP Pulse Ox
98.2 F 53 16 152/65 99
02/23/24 15:06 02/23/24 15:06 02/23/24 15:06 02/23/24 15:06 02/23/24 19:36
Lab Results
02/23/24 15:25
02/23/24 15:25
Troponin I < 0.012 ng/ml 02/23/24 15:25
Physical Exam
General: Well Developed and Well Nourished
HEENT: Normocephalic
Respiratory: Clear
Cardiac: S1/S2, Regular Rhythm and Murmur (No murmur)
Breast: Deferred by me
GI: Soft, Non Tender and Non Distended
Rectal: Deferred by Provider
Genito-urinary: Clear Urine
Musculoskeletal: No Clubbing and No Cyanosis
Skin: Warm, Dry and Rash
Neuro: Awake, Alert and Oriented
Hematologic/Lymphatic: No Lymphadenopathy
Psych: Calm
Impression / Plan
-
PCP: Casandra Mercado
Sas Sql Developer: Dr. Orlando Randhawa
Impression:
Admitted with ICD shock
Sustained ventricular tachycardia
Acute on chronic renal failure
Admitted with SOB and acute HF 11/13/23
Chest pain with serially normal Troponins
Paroxysmal atrial fibrillation
s/p CV 08/12/2023hronic anticoagulation on Eliquis
Non-ischemic cardiomyopathy EF 20-25% by echo 05/28/21 and worsened at January 2024 echo
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
Dual-chamber Medtronic ICD 06/2021 (RS)
Hypertension
Hyperlipidemia
Prostate cancer status post prostatectomy
Dri-lngewmb-bktlmrfmw diabetes
NSVT
Echo 05/28/2021: EF 20 to 25% with global hypokinesis. Left ventricle mildly dilated. Left atrial dilation. Mildly reduced right systolic function. Mild MR.
Echo 11/14/23: EF 15%, severe diffuse global hypokinesis with possible apical akinesis, mild to mod LVH, stage I diastolic dysfunction
Plan:
-Amiodarone bolus and IV amiodarone has significantly diminished his ventricular ectopy and he is not having further sustained runs. I asked the emergency room to start bolus and drip of amiodarone and IV metoprolol.
-Continue IV amiodarone 1 mg/min x 6 hours then 0.5 mg/min. Would start amiodarone 400 mg 3 times daily with IV and p.o. over overlap for 24 hours.
-His examination and OptiVol recording would not suggest overt heart failure but would add on a BNP and can continue his outpatient medications
-Cont Entresto 49/51 mg BID for now although his creatinine is mildly elevated and he just received intravenous dye. Will need to follow his creatinine and perhaps hold or adjust his Entresto
-Reasonable for serial troponins
-He is in sinus rhythm.
-Cont Eliquis
-His QRS is not wide despite his globally reduced ejection fraction so at this time I do not feel he would benefit from a device upgrade to BiV ICD. We will follow closely for ventricular arrhythmias and if he quits on amiodarone would pursue
inpatient amiodarone loading with IV p.o. overlap and eventual outpatient amiodarone. With further ventricular arrhythmias VT ablation could be considered I had preliminary discussions with both plans with patient and family and there was no
questions and they were amenable with plan.
Data Reviewed
-
EKG: Tracing Personally Visualized and interpreted
CT Scan: Report Reviewed by me
Medical Tests (Nuc Med, Echo etc): Report Reviewed by me
Labs: Labs Reviewed by me
Old Records: Reviewed
--- NOTE | 2024-02-23 20:25 | HPS.HSE ---
Family Physician
-
Family Physician: Casandra Mercado
Chief Complaint
-
ICD firing
History of Present Illness
This is a 73-year-old with past medical history significant for congestive heart failure with severe global hypokinesis EF 10 to 15% on last echo done yesterday, wao-hzngtau-wghlrqvgp diabetes, hypertension, CKD who presents to the emergency
department with complaints of acute onset of back pain and then had with AICD firing while arriving in the ED. He had 2 more episodes of device firing in the emergency department.
Patient denies any recent symptoms. He reports that his weight has been stable since his discharge in November at around 1 91-1 95. Currently 193. He did have episodes of CARLOS and Jardiance and Entresto interrupted. He also had a Lasix
interrupted. He is now back on 20 mg of Lasix daily with continued holding of the Entresto and Jardiance.
He denies any recent chest pain, dyspnea on exertion, orthopnea PND or ankle swelling.
He denies fever or chills. He denies any urinary symptoms. The onset of back pain was acute. He was unable to get comfortable due to sharp bilateral lower back pain. He denies any radiation down his legs. He denies any lower extremity weakness,
incontinence of the bladder or bowel.
Patient denies any prior episodes of V. tach or ICD discharge.
In the ED he was afebrile, blood pressure was 122/65 satting 99% on room air. Pulse variable 53-100. ECG showed sinus at a rate of 99. No acute ST or T wave changes. Chest x-ray was clear. He had a CT of the chest abdomen pelvis which was
negative for dissection or embolism. No acute intra-abdominal pathology or renal pathology noted. CBC was unremarkable. Potassium was 4.5, troponin 0.012 BUN and creatinine were 38 and 1.9 with a glucose of 225.
Medical History
Past Medical History
Past Medical History: Reports Arrhythmia (Paroxysmal atrial fibrillation), Cancer (Prostate cancer status post radical facetectomy.), CHF (Cardiomyopathy with EF of 15% status post ICD), HTN, Hypercholesterolemia and NIDDM
Past Surgical History: Reports Cardiac (Dual-chamber ICD placement) and Urological (Radical prostatectomy.)
Social History
Tobacco: Non-smoker
Alcohol: None
Drug: None
Personal:
Living: With Family
Employment: Retired
Family History
Family History: Not pertinent
Allergies / Home Medications
Allergies reflects when Allergies were last updated in [employer].
Home Medications with original date entered in [employer]
Allergy/Medication List:
Allergies
Allergy/AdvReac Type Severity Reaction Status Date / Time
MAGALY Inhibitors Allergy severe Verified 11/13/23 09:23
cough
Home Medications
atorvastatin 10 mg tablet 10 mg PO DAILY High cholesterol 10/22/19
glimepiride 4 mg tablet 4 mg PO BID Diabetes 03/05/21
aspirin 81 mg tablet,delayed release 81 mg PO DAILY Blood Clot Prevention/Tx 06/09/21
docusate sodium 100 mg capsule (Colace) 100 mg PO BID Constipation 06/22/21
apixaban 5 mg tablet (Eliquis) 5 mg PO BID Blood Clot Prevention/Tx 08/12/23
metformin 1,000 mg tablet 1,000 mg PO DAILY Diabetes 08/12/23
metoprolol succinate 100 mg tablet,extended release 24 hr 100 mg PO BID Heart disease/condition #60 tabs 11/15/23
dulaglutide 4.5 mg/0.5 mL subcutaneous pen injector (Trulicity) 4.5 mg SC TU 02/23/24
furosemide 20 mg tablet 20 mg PO DAILY 02/23/24
Review of Systems
-
History Source: Patient
Constitutional: Reports No Symptoms
EENT: Reports No Symptoms
Respiratory: Reports No Symptoms
Cardiac: Reports Other (ICD discharge)
Abdomen/GI: Reports No Symptoms
: Reports No Symptoms
Musculoskeletal: Reports Muscle Pain
Skin: Reports No Symptoms
Neurological: Reports No Symptoms
Endocrine: Reports No Symptoms
Hematologic/Lymphatic: Reports No Symptoms
Psych: Reports No Symptoms
Physical Exam
Vital Signs
Vital Signs
Temp Pulse Resp BP Pulse Ox
98.2 F 53 16 152/65 99
02/23/24 15:06 02/23/24 15:06 02/23/24 15:06 02/23/24 15:06 02/23/24 19:36
Physical Exam
General: Well Developed, Well Nourished, No Apparent Distress and Comfortable
HEENT: NormoCephalic, Anicteric, Moist mucous membranes and Atraumatic
Respiratory: Clear
Cardiac: S1/S2 and Irregular Rhythm
Breast: Deferred by me
GI: Soft, Non Tender, Non Distended and Normal Bowel Sounds
Rectal: Deferred by Provider
Genito-urinary: Deferred by me
Musculoskeletal: No Clubbing, No Cyanosis and No Edema
Skin: Warm
Neuro: AO x 3 and Nonfocal/grossly intact
Hematologic/Lymphatic: No Lymphadenopathy
Psych: Calm
Laboratory Results
-
02/23/24 15:25
02/23/24 15:25
Laboratory Results
Total Bilirubin 0.7 mg/dl (0.2-1.3) 02/23/24 15:25
AST 16 U/L (17-59) L 02/23/24 15:25
ALT 21 U/L (0-50) 02/23/24 15:25
Alkaline Phosphatase 103 U/L (38-126) 02/23/24 15:25
Troponin I < 0.012 ng/ml 02/23/24 15:25
Data Reviewed
-
CT Scan: Report Reviewed by me
Medical Tests (Nuc Med, Echo, EKG etc): Image Personally Visualized and interpreted
Lab Data: Labs Reviewed by me
Old Records: Reviewed
Impression/Plan
-
IMPRESSION:
73-year-old with past medical history significant for CHF with depressed EF of around 15% on last echo, hypertension, hyperlipidemia and zyc-cuyvdcr-hsdqopbxh diabetes he status post AICD and came in with chest pain and en route to the emergency
department had ICD discharge x 3. Review of rhythm shows V. tach that was terminated by the ICD discharge. Continues to have short runs of V. tach on telemetry. ECG is nonischemic initial troponin was negative. Imaging shows no acute pulmonary
edema dissection or embolism. Electrolytes are stable with potassium of 4.5, troponin is negative. BUN/creatinine slightly elevated compared to his prior baseline of around 1.6.
PLAN:
VTACH s/p ICD firing w/ continue ectopy and short runs of vtach.
- admit to ivu
- amiodarone bolused and continue gtt
- to start on amio 400mg po tid
- keep K, Mag > 4, 2
- no evidence of acute ischemia, trend troponins for now
- continue eliquis
- echo in am
- cardiology aware and notified
CHF - euvolemic with mild carlos, recently started back on lasix 20
- holding entresto
- holding jardiance
- holding lasix
- continue metoprolol succinate 100 bid
- daily weights
- salt and fluid restrictions
DM II - recent blood glucose elevations likely due to holding jardiance
- sliding scale insulin moderate
- continue glimepiride
- hold metformin and jardiance
CARLOS - Cr 1.9, mild as baseline was 1.6 and saw renal recently. No acute retention/obstruction
- holding entresto and jardiance
- holding lasix for now
- monitor
Paroxysmal afib
- continue metoprolol, monitor for brody
- continue eliquis
DVT PPX - on apixaban
Code status - Full Code
[2024-02-23] MEDS: LOPRESSOR 2.5 MG IV (20:38)
[2024-02-23] MEDS: TOPROL XL 100 MG PO (21:05)
[2024-02-23 21:30] LABS: NT-proBNP 4360 pg/ml; Troponin I 0.014 ng/ml
[2024-02-23] MEDS: PACERONE 400 MG PO (22:08)
[2024-02-23] MEDS: MAGNESIUM SULFATE 102 GRAMS IV (22:13)
[2024-02-24] VITALS (8 sets, daily range): BP systolic 104–134; BP diastolic 62–86; BMI 25.9
--- NOTE | 2024-02-24 00:23 | PTCARENOTE ---
received the patient from the ED. AAOx3. denies any cp/sob. complaining of lower back pain at times- with movement. patient refusing tylenol at this time. SR on tele with PVCs. bigeminy at times. 90s. bp stable. amio gtt infusing per order. new IV
site placed for Amio gtt by IV team. reviewed plan of care with the patient and -verbalized understanding. call hidalgo within reach. educated to inform RN with any changes.
updated Radha Mccloud TITLE ASSISTANT regarding patients nightly medications-Eliquis, Colace, lipitor, glimepiride. per TITLE ASSISTANT-will wait until morning doses. no new orders at this time.
[2024-02-24 00:48] LABS: Troponin I 0.014 ng/ml
[2024-02-24 05:19] LABS: Blood Urea Nitrogen 35 mg/dl (9-20); Calcium 9.1 mg/dl (8.4-10.2); Carbon Dioxide 23 mmol/L (22-30); Chloride 101 mmol/L (98-107); Estimated Creatinine Clearance 42 ml/min; Glucose 164 mg/dl (70-99); HDL Cholesterol 49 mg/dl; LDL Cholesterol, Calculated 40 mg/dl; Magnesium 2.3 mg/dl (1.6-2.3); Phosphorus 4.1 mg/dl (2.5-4.5); Potassium 4.3 mmol/L (3.5-5.1); Sodium 137 mmol/L (135-145); Total Cholesterol 114 mg/dl (50-199); Triglyceride 127 mg/dl (10-149); Very Low Density Lipoprotein 25 mg/dl (0-30); eGFR 41.52
[2024-02-24 05:32] LABS: TSH Reflex To Free T4 2.08 uIU/ml (0.47-4.68)
--- NOTE | 2024-02-24 07:27 | W.PN.HOSP.TC ---
Today's Communication/Plan
-
rate rhythm control as per cardio
glycemic control
pain control
lidocaine patches lower back
Assessment / Plan
Assessment / Plan
Physical Exam
General: Well Developed, Well Nourished, No Apparent Distress and Comfortable
HEENT: NormoCephalic, Anicteric, Moist mucous membranes and Atraumatic
Respiratory: Clear
Cardiac: S1/S2 and Irregular Rhythm
GI: Soft, Non Tender, Non Distended and Normal Bowel Sounds
Musculoskeletal: paraspinal tenderness lower back
Ext: No Clubbing, No Cyanosis and No Edema
Skin: Warm
Neuro: AO x 3
Psych: Calm
73M HFrEF AICD, HTN, HLD, NIDDM p/w back pain and ICD discharge x 3. Review of rhythm showed V. tach that was terminated by the ICD discharge. Continued to have short runs of V. tach on telemetry. ECG nonischemic, troponin negative x3. Imaging
showed no acute pulmonary edema dissection or embolism.
PLAN:
VTACH s/p ICD firing w/ continue ectopy and short runs of vtach.
- amiodarone gtt bridging w/ amio 400 mg PO tid as per Cardio
- keep K, Mag > 4, 2
- troponin neg x3
- continue Eliquis
- ECHO pending
- cardiology eval appreciated
HFrEF - appears euvolemic with mild CARLOS vs CKDIII
- cont home lasix w/ holding parameters
- continue metoprolol succinate 100 bid
- daily weights
- salt and fluid restrictions
DM II
- sliding scale insulin moderate
- continue glimepiride Metformin
Paroxysmal afib
- continue metoprolol
- continue Eliquis
Acute Lower Back Pain
-suspect musculoskeletal/muscle strain
-2 lidocaine patches lower back ordered
DVT PPX - on apixaban
Code status - Full Code
I spent a total of 50 minutes with the patient or on the floor. More than 50% of this time involved counseling and coordination of care.
Anticipated Discharge: 24 - 48 hours
Subjective/Interval History
-
Date of Service: February 24, 2024
Seen and examined at bedside in no acute distress sitting up comfortably in chair. reports feeling well. Back pain significantly improved though remains present, exacerbated with movement. Reports ambulating without issues.
Objective Data
-
Labs:
Laboratory Results
02/24/24
04:17
Sodium 137
Potassium 4.3
Chloride 101
Carbon Dioxide 23
BUN 35 H
Creatinine 1.7 H
Glucose 164 H
Calcium 9.1
Vital Signs:
Vital Signs
Temp Pulse Resp BP Pulse Ox
97.5 F 91 18 114/76 95
02/24/24 07:19 02/24/24 01:41 02/24/24 07:19 02/24/24 01:41 02/24/24 07:19
[2024-02-24 08:22] LABS: Glucose - Point of Care 240 mg/dl (70-99)
[2024-02-24] MEDS: NOVOLOG FLEXPEN-MODERATE RESISTANCE 300 UNITS SC (08:32)
[2024-02-24] MEDS: PACERONE 400 MG PO ×3 (08:33→22:35)
[2024-02-24] MEDS: AMARYL 4 MG PO ×2 (08:33→17:34)
[2024-02-24] MEDS: ELIQUIS 5 MG PO ×2 (08:33→20:33)
[2024-02-24] MEDS: ASPIR LOW (ENTERIC COATED) 81 MG PO (08:33)
[2024-02-24] MEDS: TOPROL XL 100 MG PO ×2 (08:33→20:33)
[2024-02-24] MEDS: COLACE 100 MG PO ×2 (08:33→20:33)
--- NOTE | 2024-02-24 09:26 | W.PN.CARDCBS ---
Today's Communication / Plan
-
Continue IV and p.o. amiodarone overlap another 24 hours
Likely switch to p.o. amiodarone 400 mg 3 times daily on February 24
Should have at least 4 to 5 g of amiodarone as an inpatient prior to discharge. At discharge would do amiodarone 200 mg twice daily x 1 month then daily
Outpatient follow-up with cardiology and EP in our office as delineated in the note
Continue cardiac meds and follow creatinine closely
Will follow with you
Impression / Plan
-
PCP: Casandra Mercado
Precision Machining Instructor: Dr. Orlando Randhawa
Impression:
Admitted with ICD shock
Sustained ventricular tachycardia
Acute on chronic renal failure
Admitted with SOB and acute HF 11/13/23
Chest pain with serially normal Troponins
Paroxysmal atrial fibrillation
s/p CV 4Chronic anticoagulation on Eliquis
Non-ischemic cardiomyopathy EF 20-25% by echo 05/28/21 and worsened at January 2024 echo
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
Dual-chamber Medtronic ICD 06/2021 (RS)
Hypertension
Hyperlipidemia
Prostate cancer status post prostatectomy
Azx-nsvsvsf-[id number] diabetes
NSVT
Echo 05/28/2021: EF 20 to 25% with global hypokinesis. Left ventricle mildly dilated. Left atrial dilation. Mildly reduced right systolic function. Mild MR.
Echo 11/14/23: EF 15%, severe diffuse global hypokinesis with possible apical akinesis, mild to mod LVH, stage I diastolic dysfunction
Plan:
-Amiodarone bolus and IV amiodarone has significantly diminished his ventricular ectopy and he is not having further sustained runs. Would continue IV and p.o. amiodarone overlap for another 24 hours. I am told we must place a PICC line as per
protocol to allow 12-24 more hours of amiodarone infusion. Will order a PICC consults and would continue IV amiodarone until February 24 and continue 400 mg 3 times daily amiodarone at least for a 4 to 5 g inpatient load. 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
-If he has further ICD shocks could consider VT ablation next week although he has a nonischemic pattern with global hypokinesis and may require both endocardial and epicardial approach. As he is quite and down on amiodarone would favor medical
therapy and if he has further ICD shocks as an outpatient can consider endocardial plus or minus epicardial VT ablation.
-Follow creatinine
-He is in sinus rhythm.
-Cont Eliquis
-His QRS duration is 110 ms despite ejection fraction of 10 to 15%. He describes class II symptoms at home with some windedness with walking the dog. If he were to develop an overt left bundle branch block with amiodarone or a widened QRS greater
than 120 ms would consider outpatient upgrade to a biventricular ICD. He follows with Dr. Scott in our office and Dr. Huddleston has performed his ICD implantation in 2021 and should follow-up with both in the office discuss options.
Progress Note - Precision Machining Instructor
Subjective
Date of Service: February 24, 2024
Improved burden of ventricular arrhythmia. Occasional pattern of bigeminy although mostly in sinus and much less ventricular ectopy
Objective
Labs:
02/23/24 15:25
02/24/24 04:17
Labs
Hgb 15.8 g/dL (13.0-18.0) 02/23/24 15:25
Hct 47.5 % (39.0-52.0) 02/23/24 15:25
Plt Count 214 10^3/uL (130-400) 02/23/24 15:25
Sodium 137 mmol/L (135-145) 02/24/24 04:17
Potassium 4.3 mmol/L (3.5-5.1) 02/24/24 04:17
BUN 35 mg/dl (9-20) H 02/24/24 04:17
Creatinine 1.7 mg/dL (0.7-1.3) H 02/24/24 04:17
Glucose 164 mg/dl (70-99) H 02/24/24 04:17
Troponins
02/23/24 02/23/24 02/24/24
15: 20:57 00:03
Troponin I < 0.012 0.014 0.014
Vital Signs and I&O:
Vital Signs
Temp Pulse Resp BP Pulse Ox
97.5 F 91 18 114/76 95
02/24/24 07:19 02/24/24 01:41 02/24/24 07:19 02/24/24 01:41 02/24/24 07:19
Vital Signs
Temp Pulse Resp BP Pulse Ox
97.5 F 91 18 114/76 95
02/24/24 07:19 02/24/24 01:41 02/24/24 07:19 02/24/24 01:41 02/24/24 07:19
Physical Exam
Physical Exam
Physical Exam
General: no apparent distress, not acutely ill
Neck: supple. no meningeal signs. normal psoterior pharynx
Heart: s1/s2 regular rate and rhythm, no murmur. equal radial pulses.
Lungs: no acute respiratory distress. clear bilaterally
Abdomen: normal bowel sounds. not tender. no CVAT
Neuro: alert and oriented. no focal neurological deficits
Skin: no rash
Psychiatric: well kept. interactive and cooperative
Extremities: no edema. no calf tenderness. negative homans. good distal pulses
[2024-02-24] MEDS: TYLENOL 650 MG PO (12:18)
[2024-02-24] MEDS: LIDOCAINE 4% PATCH 2 PATCH TOPICAL (12:18)
[2024-02-24] MEDS: LASIX 20 MG PO (12:19)
--- NOTE | 2024-02-24 12:19 | VATNOTE ---
PICC ordered, attempted to place PICC but unable to get PICC to advance past the right shoulder. Attempts to reposition patient but still unable to advance PICC. A midline was placed for reliable IV access. PCN and PA notified
[2024-02-24] MEDS: NOVOLOG FLEXPEN-MODERATE RESISTANCE 3 UNITS SC (13:22)
[2024-02-24 13:23] LABS: Glucose - Point of Care 221 mg/dl (70-99)
[2024-02-24 17:34] LABS: Glucose - Point of Care 168 mg/dl (70-99)
[2024-02-24] MEDS: NOVOLOG FLEXPEN-MODERATE RESISTANCE 1 UNITS SC (17:35)
[2024-02-24] MEDS: LIPITOR 10 MG PO (17:36)
[2024-02-24] MEDS: CORDARONE 518 MG IV (18:50)
[2024-02-24 21:27] LABS: Glucose - Point of Care 162 mg/dl (70-99)
[2024-02-25] VITALS (7 sets, daily range): BP systolic 96–119; BP diastolic 63–87; BMI 26.2
[2024-02-25 03:46] LABS: Hematocrit 40.1 % (39.0-52.0); Hemoglobin 13.3 g/dL (13.0-18.0); Mean Corp Hgb Conc. 33.2 g/dL (33.0-37.0); Mean Corpuscular Hgb 29.8 pg (27.0-31.0); Mean Corpuscular Volume 89.9 fL (80.0-94.0); Mean Platelet Volume 11.5 fL (7.4-10.4); Platelet Count 181 10^3/uL (130-400); Red Blood Cell Count 4.46 10^6/uL (4.70-6.10); Red Cell Dist. Width 13.6 % (11.5-14.5); White Blood Cell Count 13.7 10^3/uL (4.8-10.8)
[2024-02-25 04:14] LABS: Blood Urea Nitrogen 40 mg/dl (9-20); Calcium 9.3 mg/dl (8.4-10.2); Carbon Dioxide 26 mmol/L (22-30); Chloride 98 mmol/L (98-107); Estimated Creatinine Clearance 42 ml/min; Glucose 161 mg/dl (70-99); Sodium 134 mmol/L (135-145); eGFR 41.52
--- NOTE | 2024-02-25 05:39 | PTCARENOTE ---
Assumed care of pt at change of shift. NSR on tele with a run of eloy, HR 70s-80s. Pt with complaints of back spasms but no constant pain, denies medication at this time. Amio gtt currently infusing at 0.5mg/min. Ambulating independently
without difficulty. Plan of care discussed and pt verbalizes understanding. Call hidalgo within reach.
--- NOTE | 2024-02-25 06:55 | W.PN.HOSP.TC ---
Today's Communication/Plan
-
cont amiodarone as per Cardio
resume Home Entresto and Farxiga (substitute for home Jardiance)
pain control
monitor renal function
glycemic control
Assessment / Plan
Assessment / Plan
Physical Exam
General: Well Developed, Well Nourished, No Apparent Distress and Comfortable
HEENT: NormoCephalic, Anicteric, Moist mucous membranes and Atraumatic
Respiratory: Clear
Cardiac: S1/S2 and Irregular Rhythm
GI: Soft, Non Tender, Non Distended and Normal Bowel Sounds
Musculoskeletal: paraspinal tenderness lower back
Ext: No Clubbing, No Cyanosis and No Edema
Skin: Warm
Neuro: AO x 3
Psych: Calm
73M HFrEF AICD, HTN, HLD, NIDDM p/w back pain and ICD discharge x 3. Review of rhythm showed V. tach that was terminated by the ICD discharge. Continued to have short runs of V. tach on telemetry. ECG nonischemic, troponin negative x3. Imaging
showed no acute pulmonary edema dissection or embolism.
PLAN:
VTACH s/p ICD firing w/ continue ectopy and short runs of vtach.
- amiodarone gtt transitioned to amio 400 mg PO tid as per Cardio
- keep K, Mag > 4, 2
- troponin neg x3
- continue Eliquis
- ECHO pending
- cardiology eval appreciated
HFrEF - appears euvolemic with mild CARLOS vs CKDIII
- cont home lasix w/ holding parameters
- Home Entresto 49/51 resumed
- Farxiga started (to transition to patient's home Jardiance on discharge, medication not available in hospital pharmacy)
- continue metoprolol succinate 100 bid
- daily weights
- salt and fluid restrictions
DM II
- sliding scale insulin moderate
- continue glimepiride Metformin
- started Farxiga to transition to patient's home Jardiance (not available in hospital pharmacy) on discharge
Paroxysmal afib
- continue metoprolol
- continue Eliquis
Acute Lower Back Pain
-suspect musculoskeletal/muscle strain
-2 lidocaine patches lower back ordered
-cont pain control
DVT PPX - on apixaban
Code status - Full Code
I spent a total of 50 minutes with the patient or on the floor. More than 50% of this time involved counseling and coordination of care.
Anticipated Discharge: 24 - 48 hours
Subjective/Interval History
-
Date of Service: February 25, 2024
No acute distress sitting up comfortably in chair. Overall reports feeling well. Back pain persists but improving.
Objective Data
-
Labs:
Laboratory Results
02/25/24
03:01
WBC 13.7 H
Hgb 13.3
Hct 40.1
Plt Count 181
Sodium 134 L
Potassium 4.0
Chloride 98
Carbon Dioxide 26
BUN 40 H
Creatinine 1.7 H
Glucose 161 H
Calcium 9.3
Vital Signs:
Vital Signs
Temp Pulse Resp BP Pulse Ox
97.4 F 89 18 119/84 94
02/25/24 03:03 02/25/24 03:00 02/25/24 03:03 02/25/24 02:49 02/25/24 03:03
I&O
02/23/24 02/24/24 02/25/24
06:59 06:59 06:59
Intake Total 960 / 960
Balance 960 / 960
[2024-02-25 08:21] LABS: Glucose - Point of Care 250 mg/dl (70-99)
[2024-02-25] MEDS: NOVOLOG FLEXPEN-MODERATE RESISTANCE 5 UNITS SC (08:21)
--- NOTE | 2024-02-25 09:25 | W.PN.CARDCBS ---
Today's Communication / Plan
-
No further VT
Discontinue IV amiodarone and continue oral amiodarone loading
Follow ECG, QT interval
Impression / Plan
-
PCP: Casandra Mercado
Production Machine Shop Supervisor: Dr. Orlando Randhawa
Impression:
Admitted with ICD shock
Sustained ventricular tachycardia
Acute on chronic renal failure
Admitted with SOB and acute HF 11/13/23
Chest pain with serially normal Troponins
Paroxysmal atrial fibrillation
s/p CV 08/12/2023hronic anticoagulation on Eliquis
Non-ischemic cardiomyopathy EF 20-25% by echo 05/28/21 and worsened at January 2024 echo
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
Dual-chamber Medtronic ICD 06/2021 (RS)
Hypertension
Hyperlipidemia
Prostate cancer status post prostatectomy
Owt-lnzgnbh-fattkcjdm diabetes
NSVT
Echo 05/28/2021: EF 20 to 25% with global hypokinesis. Left ventricle mildly dilated. Left atrial dilation. Mildly reduced right systolic function. Mild MR.
Echo 11/14/23: EF 15%, severe diffuse global hypokinesis with possible apical akinesis, mild to mod LVH, stage I diastolic dysfunction
Plan:
No further VT
Will DC IV amiodarone
Continue oral amiodarone loading at 400 mg p.o. 3 times daily started on 02/23/2024
If he has further ICD shocks could consider VT ablation next week although he has a nonischemic pattern with global hypokinesis and may require both endocardial and epicardial approach. As he is quite and down on amiodarone would favor medical
therapy and if he has further ICD shocks as an outpatient can consider endocardial plus or minus epicardial VT ablation.
Creatinine has been stable at 1.7
He is in sinus rhythm. Cont Eliquis
His QRS duration is 110 ms despite ejection fraction of 10 to 15%. He describes class II symptoms at home with some windedness with walking the dog. If he were to develop an overt left bundle branch block with amiodarone or a widened QRS greater
than 120 ms would consider outpatient upgrade to a biventricular ICD. He follows with Dr. Scott in our office and Dr. Huddleston has performed his ICD implantation in 2021 and should follow-up with both in the office discuss options.
Progress Note - Production Machine Shop Supervisor
Subjective
Date of Service: February 25, 2024
No complaints
Objective
Labs:
02/25/24 03:01
02/25/24 03:01
Labs
Hgb 13.3 g/dL (13.0-18.0) 02/25/24 03:01
Hct 40.1 % (39.0-52.0) 02/25/24 03:01
Plt Count 181 10^3/uL (130-400) 02/25/24 03:01
Sodium 134 mmol/L (135-145) L 02/25/24 03:01
Potassium 4.0 mmol/L (3.5-5.1) 02/25/24 03:01
BUN 40 mg/dl (9-20) H 02/25/24 03:01
Creatinine 1.7 mg/dL (0.7-1.3) H 02/25/24 03:01
Glucose 161 mg/dl (70-99) H 02/25/24 03:01
Troponins
02/23/24 02/23/24 02/24/24
15:25 20:57 00:03
Troponin I < 0.012 0.014 0.014
Vital Signs and I&O:
Vital Signs
Temp Pulse Resp BP Pulse Ox
98.3 F 93 20 118/87 96
02/25/24 07:16 02/25/24 07:45 02/25/24 07:16 02/25/24 07:18 02/25/24 07:16
Vital Signs
Temp Pulse Resp BP Pulse Ox
98.3 F 93 20 118/87 96
02/25/24 07:16 02/25/24 07:45 02/25/24 07:16 02/25/24 07:18 02/25/24 07:16
Intake & Output
02/23/24 02/24/24 02/25/24 02/26/24
06:59 06:59 06:59 06:59
Intake Total 960 / 960
Balance 960 / 960
Physical Exam
Physical Exam
General: Well developed, well nourished in NAD.
Neck: Supple, no JVD, HJR, carotids +2 B/L, no bruits bilaterally.
Heart: Non displaced PMI, RRR, no murmurs, No S3, S4, no rubs.
Lungs: Clear to auscultation bilaterally, no wheeze, rhonchi, rubs bilaterally,
normal expiratory phase.
Extremities: No clubbing, cyanosis or edema bilaterally.
Neuro: Grossly nonfocal, awake, alert and oriented x3.
[2024-02-25] MEDS: FARXIGA 10 MG PO (09:26)
[2024-02-25] MEDS: ELIQUIS 5 MG PO ×2 (09:27→19:43)
[2024-02-25] MEDS: GLUCOPHAGE 1000 MG PO (09:27)
[2024-02-25] MEDS: LASIX 20 MG PO (09:28)
[2024-02-25] MEDS: ASPIR LOW (ENTERIC COATED) 81 MG PO (09:28)
[2024-02-25] MEDS: LIDOCAINE 4% PATCH 2 PATCH TOPICAL (09:28)
[2024-02-25] MEDS: PACERONE 400 MG PO ×3 (09:28→21:50)
[2024-02-25] MEDS: COLACE 100 MG PO ×2 (09:28→19:43)
[2024-02-25] MEDS: TOPROL XL 100 MG PO ×2 (09:29→19:43)
[2024-02-25] MEDS: AMARYL 4 MG PO ×2 (09:29→18:15)
[2024-02-25] MEDS: ENTRESTO 49 MG/51 MG 1 TAB PO ×2 (09:29→21:50)
[2024-02-25] MEDS: LIPITOR PO (11:18)
[2024-02-25 13:37] LABS: Glucose - Point of Care 180 mg/dl (70-99)
[2024-02-25] MEDS: NOVOLOG FLEXPEN-MODERATE RESISTANCE 1 UNITS SC ×2 (13:38→18:14)
[2024-02-25 18:14] LABS: Glucose - Point of Care 170 mg/dl (70-99)
[2024-02-25] MEDS: LIPITOR 10 MG PO (18:15)
[2024-02-25 22:18] LABS: Glucose - Point of Care 185 mg/dl (70-99)
--- NOTE | 2024-02-26 | PTCARENOTE ---
Rec'd pt at change of shift. Pt AAO*3, VSS, and in NSR on TELE monitor. Pt reports mild back pain but declines any pain medication. Pt updated on plan of care. Pt denies any questions or concerns. See flowsheet, MAR, and worklist for full
assessment. Plan of care ongoing.
[2024-02-26 02:56] VITALS: BP 98/64
[2024-02-26 03:31] VITALS: BMI 25.7
[2024-02-26 04:21] LABS: Hematocrit 43.2 % (39.0-52.0); Hemoglobin 14.3 g/dL (13.0-18.0); Mean Corp Hgb Conc. 33.1 g/dL (33.0-37.0); Mean Corpuscular Hgb 29.9 pg (27.0-31.0); Mean Corpuscular Volume 90.4 fL (80.0-94.0); Mean Platelet Volume 11.6 fL (7.4-10.4); Platelet Count 188 10^3/uL (130-400); Red Blood Cell Count 4.78 10^6/uL (4.70-6.10); Red Cell Dist. Width 13.5 % (11.5-14.5); White Blood Cell Count 9.9 10^3/uL (4.8-10.8)
--- NOTE | 2024-02-26 05:32 | PTCARENOTE ---
Morning EKG obtained. Critical test result obtained reading NSR with prolonged QT. Dr DIDIER Do notified. Rec'd order to hold Amio 400 PO TID until further noticed from cardiology. Vital signs remain stable. Pt denies any pain or discomfort.
Plan of care ongoing.
[2024-02-26 06:28] LABS: Blood Urea Nitrogen 38 mg/dl (9-20); Calcium 9.1 mg/dl (8.4-10.2); Carbon Dioxide 20 mmol/L (22-30); Chloride 99 mmol/L (98-107); Estimated Creatinine Clearance 40 ml/min; Glucose 162 mg/dl (70-99); Potassium 4.8 mmol/L (3.5-5.1); Sodium 133 mmol/L (135-145); eGFR 38.77
[2024-02-26 08:25] VITALS: BP 120/79
[2024-02-26 08:36] LABS: Glucose - Point of Care 166 mg/dl (70-99)
[2024-02-26] MEDS: LIDOCAINE 4% PATCH TOPICAL (08:39)
[2024-02-26] MEDS: ENTRESTO 49 MG/51 MG 1 TAB PO (08:40)
[2024-02-26] MEDS: LASIX 20 MG PO (08:40)
[2024-02-26] MEDS: FARXIGA 10 MG PO (08:40)
[2024-02-26] MEDS: AMARYL 4 MG PO (08:40)
[2024-02-26] MEDS: ASPIR LOW (ENTERIC COATED) 81 MG PO (08:40)
[2024-02-26] MEDS: GLUCOPHAGE 1000 MG PO (08:41)
[2024-02-26] MEDS: TOPROL XL 100 MG PO (08:41)
[2024-02-26] MEDS: COLACE 100 MG PO (08:41)
[2024-02-26] MEDS: ELIQUIS 5 MG PO (08:41)
[2024-02-26] MEDS: NOVOLOG FLEXPEN-MODERATE RESISTANCE 1 UNITS SC (09:08)
--- NOTE | 2024-02-26 09:36 | W.PN.CARDCBS ---
Addendum entered and electronically signed by Kunal Dsouza MD 02/26/24 12:54:
I saw and examined the patient.
The FORMAT PROOFREADER or PA's note was reviewed and I agree with the note.
Comment: General: Well developed, well nourished in NAD.
Neck: Supple, no JVD, HJR, carotids +2 B/L, no bruits bilaterally.
Heart: Non displaced PMI, RRR, no murmurs, No S3, S4, no rubs.
Lungs: Clear to auscultation bilaterally, no wheeze, rhonchi, rubs bilaterally,
normal expiratory phase.
Extremities: No clubbing, cyanosis or edema bilaterally.
Neuro: Grossly nonfocal, awake, alert and oriented x3.
stable cardiology status for d/c. f/u arranged. no VT off iv amodarone. decrease amio to 200 mg po bid on d/c
Original Note:
Today's Communication / Plan
-
D/C to home on amiodarone 200 mg BID
Lytes stable
D/C to home and will arrange for f/u
52 min coordination of care and helping facilitate d/c
Impression / Plan
-
PCP: Casandra Mercado
Senior Information Security Analyst: Dr. Orlando Randhawa
Impression:
Admitted with ICD shock 02/23/24
Sustained ventricular tachycardia
CARLOS on CKD 3b
Admitted with SOB and acute HF 11/13/23
Chest pain with serially normal Troponins
Paroxysmal atrial fibrillation
s/p CV 08/12/2023
Chronic anticoagulation on Eliquis
Non-ischemic cardiomyopathy EF 20-25% by echo 05/28/21 and worsened to 10-15% on echo 02/22/24
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
Dual-chamber Med[employer] ICD 06/2021 (RS)
Hypertension
Hyperlipidemia
Prostate cancer status post prostatectomy
Bbn-ldrcvlv-kwciydwtr diabetes
Echo 05/28/21: EF 20 to 25% with global hypokinesis. Left ventricle mildly dilated. Left atrial dilation. Mildly reduced right systolic function. Mild MR.
Echo 11/14/23: EF 15%, severe diffuse global hypokinesis with possible apical akinesis, mild to mod LVH, stage I diastolic dysfunction
Echo 02/22/24: EF 10 to 15% with severe global hypokinesis, normal RV size and function, mild MR, mild TR
Plan:
-Patient went to ER on 02/23/2024 with back pain and as his pulled up to the ER entrance he had an ICD shock and then while in his ER bed was shocked again for VT. Patient was started on amiodarone gtt and was also loaded with amiodarone 400
mg PO TID. patient has received a 2.8 g load of amiodarone PO as of 02/26/2024 AM.
-QTc relatively stable and he has an ICD in place. Will d/c to home on amiodarone 200 mg BID
-Potassium is 4.8 and magnesium is 2.0
-Outpatient dose of Toprol-XL 100 mg BID has been continued
-If he has further ICD shocks could consider VT ablation next week although he has a nonischemic pattern with global hypokinesis and may require both endocardial and epicardial approach. VT burden has improved on amiodarone would favor medical
therapy and if he has further ICD shocks as an outpatient can consider endocardial plus or minus epicardial VT ablation.
-Patient with known CKD 3b and Cre is 1.8.
-EF 10 to 15% by echo 02/22/2024.
-CM regimen includes Jardiance 25 mg daily, of note Jardiance changed to Farxiga for formulary requirements.
-Cont Entresto 49/51 mg BID.
-Patient had nonobstructive CAD by cath 2021.
-Patient with known paroxysmal Afib.
-Cont Eliquis 5 mg BID (age 73, Cre 1.8, wt 88.3 kg)
-D/C to home today
Progress Note - Senior Information Security Analyst
Subjective
Date of Service: February 26, 2024
Feels well, no palpitations, still has back pain
Objective
Labs:
02/26/24 03:54
02/26/24 05:49
Labs
Hgb 14.3 g/dL (13.0-18.0) 02/26/24 03:54
Hct 43.2 % (39.0-52.0) 02/26/24 03:54
Plt Count 188 10^3/uL (130-400) 02/26/24 03:54
Sodium 133 mmol/L (135-145) L 02/26/24 05:49
Potassium 4.8 mmol/L (3.5-5.1) 02/26/24 05:49
BUN 38 mg/dl (9-20) H 02/26/24 05:49
Creatinine 1.8 mg/dL (0.7-1.3) H 02/26/24 05:49
Glucose 162 mg/dl (70-99) H 02/26/24 05:49
Troponins
02/23/24 02/23/24 02/24/24
15:25 20:57 00:03
Troponin I < 0.012 0.014 0.014
Vital Signs and I&O:
Vital Signs
Temp Pulse Resp BP Pulse Ox
97.4 F 90 18 120/79 99
02/26/24 08:25 02/26/24 08:40 02/26/24 08:25 02/26/24 08:40 02/26/24 08:25
Vital Signs
Temp Pulse Resp BP Pulse Ox
97.4 F 90 18 120/79 99
02/26/24 08:25 02/26/24 08:40 02/26/24 08:25 02/26/24 08:40 02/26/24 08:25
Intake & Output
02/24/24 02/25/24 02/26/24 02/27/24
06:59 06:59 06:59 06:59
Intake Total 960 / 960 1200 / 1200
Balance 960 / 960 1200 / 1200
Physical Exam
Physical Exam
GEN: NAD. AAOx3
HEENT: EOMI, MMM
LUNGS: No audible wheeze
CV: Paced on tele
ABD: ND
EXT: No edema B/L
NEURO: Gross non-focal
SKIN: No rash
[2024-02-26 11:54] VITALS: BP 110/79
[2024-02-26 13:03] LABS: Glucose - Point of Care 129 mg/dl (70-99)
[2024-02-26] MEDS: NOVOLOG FLEXPEN-MODERATE RESISTANCE SC (14:30)
--- NOTE | 2024-02-26 14:41 | W.PN.HOSP.TC ---
Today's Communication/Plan
-
Discharge home
Assessment / Plan
Assessment / Plan
NAD
Scleral Anicteric
MMM
No JVD
CTABL
RRR, S1/S2
Soft, NT, ND, BS+
Warm, Dry
AAOx3
Calm
VTACH s/p ICD firing w/ continue ectopy and short runs of vtach.
-Transition to oral amnio tolerating well cardiology called oral amiodarone to pharmacy
- keep K, Mag > 4, 2
- troponin neg x3
- continue Eliquis
- ECHO pending
- cardiology eval appreciated
HFrEF - appears euvolemic with mild CARLOS vs CKDIII
- cont home lasix w/ holding parameters
- Home Entresto 49/51 resumed
- Farxiga started (to transition to patient's home Jardiance on discharge, medication not available in hospital pharmacy)
- continue metoprolol succinate 100 bid
- daily weights
- salt and fluid restrictions
DM II
- sliding scale insulin moderate
- continue glimepiride Metformin
- started Farxiga to transition to patient's home Jardiance (not available in hospital pharmacy) on discharge
Paroxysmal afib
- continue metoprolol
- continue Eliquis
Acute Lower Back Pain
-suspect musculoskeletal/muscle strain
-2 lidocaine patches lower back ordered
-cont pain control
DVT PPX - on apixaban
Code status - Full Code
Discharge home
More than 30 minutes spent in discharge including
Final examination of the patient
Summarizing hospital stay
Instructions for continuing care to all relevant caregivers
Preparation of discharge records, prescriptions, and referral forms
Total time spent (in minutes): 33mins
Anticipated Discharge: Today
Subjective/Interval History
-
Date of Service: February 26, 2024
Seen and examined. No new complaints. No acute overnight events.
Objective Data
-
Labs:
Laboratory Results
02/26/24 02/26/24
03:54 05:49
WBC 9.9
Hgb 14.3
Hct 43.2
Plt Count 188
Sodium Cancelled 133 L
Potassium Cancelled 4.8
Chloride Cancelled 99
Carbon Dioxide Cancelled 20 L
BUN Cancelled 38 H
Creatinine Cancelled 1.8 H
Glucose Cancelled 162 H
Calcium Cancelled 9.1
Vital Signs:
Vital Signs
Temp Pulse Resp BP Pulse Ox
97.2 F 91 20 120/79 95
02/26/24 11:56 02/26/24 10:30 02/26/24 11:56 02/26/24 08:40 02/26/24 11:56
I&O
02/25/24 02/26/24 02/27/24
06:59 06:59 06:59
Intake Total 960 / 960 1200 / 1200
Balance 960 / 960 1200 / 1200
--- NOTE | 2024-02-26 14:58 | W.DCSUMMARY ---
Discharge Summary
Discharge Data
Date of Admission: 02/23/24
Date of Discharge: 02/26/24
-
Pending Results: No
Hospital Course
73-year-old with past medical history significant for congestive heart failure with severe global hypokinesis EF 10 to 15% on last echo done yesterday, euv-[id number] diabetes, hypertension, CKD
Presented with complaints of acute onset back pain and then had multiple AICD firings while in the ED with a creatinine of 1.9 and known baseline of 1.5. Was seen by cardiology recommended IV amiodarone bolus and initiate IV amiodarone drip. This
was eventually transitioned to oral amiodarone.
Will need outpatient cardiology follow-up along with nephrology follow-up.
CTCAP
IMPRESSION:
1. No aortic aneurysm or dissection.
2. No significant acute abnormality identified in the chest, abdomen or pelvis as described above.
Discharge Plan
-
Patient Disposition: Home (Routine Discharge)
Discharge Diagnosis/Procedures: VTachycardia
Condition: Good
Diet: 2 Gram Sodium
Driving Restrictions: Not until seen by your Dr
Bathing Restrictions: None
Specialty Instructions: Weigh Daily- Call MD for wt gain/loss 3 lbs overnight/5 lbs in 1 week
Activity Restrictions/Additional Instructions:
73-year-old with past medical history significant for congestive heart failure with severe global hypokinesis EF 10 to 15% on last echo done yesterday, [id number] diabetes, hypertension, CKD
Presented with complaints of acute onset back pain and then had multiple AICD firings while in the ED with a creatinine of 1.9 and known baseline of 1.5. Was seen by cardiology recommended IV amiodarone bolus and initiate IV amiodarone drip. This
was eventually transitioned to oral amiodarone.
Will need outpatient cardiology follow-up along with nephrology follow-up.
CTCAP
IMPRESSION:
1. No aortic aneurysm or dissection.
2. No significant acute abnormality identified in the chest, abdomen or pelvis as described above.
Referrals:
Casandra Mercado MD [Family Provider] -
Dana Scott DO [Active] - 03/07/24 3:20 pm (You have an appt to see Dr. Scott at the [place] office on 03/07/24 at 3:20 PM. Please call [phone] if you need to reschedule.)
Additional Discharge Medication Instructions: -Start taking amiodarone 200 mg twice a day
Prescriptions:
New
amiodarone 200 mg tablet
200 mg PO BID Qty: 60 6RF
Continued
atorvastatin 10 MG tablet
10 mg PO DAILY
glimepiride 4 MG tablet
4 mg PO BID
aspirin 81 MG tablet,delayed release (DR/EC)
81 mg PO DAILY
docusate sodium [Colace] 100 MG capsule
100 mg PO BID
Eliquis 5 mg Tablet
5 mg PO BID
metformin 1,000 MG tablet
1,000 mg PO DAILY
metoprolol succinate 100 mg Tablet Extended Release 24 Hr
100 mg PO BID Qty: 60 11RF
furosemide 20 mg Tablet
20 mg PO DAILY
Trulicity 4.5 mg/0.5 mL Pen Injector
4.5 mg SC TU
Jardiance 10 mg Tablet
10 mg PO DAILY
sacubitril-valsartan [Entresto] 49-51 mg Tablet
1 tab PO BID
Discharge Orders:
Discharge Patient (As Directed); Ordered 02/26/24
Ordered By: Martín Paul
Care Plan Goals
Care Plan Goals:
Problem: Readiness for enhanced knowledge related to diagnosis and treatment plan
Goal: Understand your diagnosis and treatment plan needs, including medications if applicable.
Instructions: Know your diagnosis, underlying causes and treatment plan options, including medications if applicable. Consult with your health care team to learn about your diagnosis and treatment plan, including medications if applicable.
Discharge Date and Time
Print Language: GEORGIAN
--- NOTE | 2024-02-26 15:58 | CM ---
spoke to pt in room, he is prev indep,lives with his in a 2 story home with no steps to enter. he denies any dc planning needs or dme's. plan is for dc to home when medically stable.
== END 2024-02-26 15:35 | disposition home or self-care (01) | DRG 309 ==
LOC: IVU 20:52
PROVIDERS: Emergency Medicine; Internal Medicine; Physician Assistant; ADMITTING PHYSICIAN Internal Medicine; ATTENDING PHYSICIAN Hospitalist; CONSULT PHYSICIAN Internal Medicine Cardiovascular Disease; EMERGENCY PHYSICIAN Student in an Organized Health Care Education/Training Program; FAMILY PHYSICIAN Internal Medicine
PROC: 4B02XTZ Measurement of Cardiac Defibrillator, External Approach (ICD-10-PCS; 2024-02-23)
DX: I47.20 Ventricular tachycardia, unspecified (principal); I13.0 Hypertensive heart and chronic kidney disease with heart failure and stage 1 through stage 4 chronic kidney disease, or unspecified chronic kidney disease; N17.9 Acute kidney failure, unspecified; I42.8 Other cardiomyopathies; I50.22 Chronic systolic (congestive) heart failure; I49.3 Ventricular premature depolarization; N18.32 Chronic kidney disease, stage 3b; E11.22 Type 2 diabetes mellitus with diabetic chronic kidney disease; I48.0 Paroxysmal atrial fibrillation; Z85.46 Personal history of malignant neoplasm of prostate; Z90.79 Acquired absence of other genital organ(s); Z95.810 Presence of automatic (implantable) cardiac defibrillator; Z79.84 Long term (current) use of oral hypoglycemic drugs; Z79.01 Long term (current) use of anticoagulants; Z79.82 Long term (current) use of aspirin; Z79.85 Long-term (current) use of injectable non-insulin antidiabetic drugs; E78.00 Pure hypercholesterolemia, unspecified; I25.10 Atherosclerotic heart disease of native coronary artery without angina pectoris; I49.01 Ventricular fibrillation; K59.00 Constipation, unspecified
CPT/HCPCS: 71275; 74174; 80048; 80053; 80061; 82962; 83735; 83880; 84100; 84443; 84484; 85025; 85027; 93005; 93289; 93306; 96365; 96366; 96375; 99291; Q9967

== ENCOUNTER → 2024-03-04 13:05 | Outpatient (REF) | payer MEDICARE, OTHER, SELFPAY | LOC: RAD 13:05 | PROVIDERS: ATTENDING PHYSICIAN Internal Medicine Nephrology; FAMILY PHYSICIAN Internal Medicine; REFERRING PHYSICIAN Internal Medicine Cardiovascular Disease | DX: N18.32 Chronic kidney disease, stage 3b (principal) | CPT/HCPCS: 76770 ==

== ENCOUNTER → 2024-09-23 08:26 | Outpatient (REF) | payer MEDICARE, OTHER, SELFPAY ==
--- NOTE | 2024-09-23 10:20 | CARDSERVLU ---
Addendum entered by Daniela White RN 09/23/24 11:40:
22 G PC inserted by IV Team Min.
Original Note:
Echocardiogram with Lumason completed after protocol screening completed. Allergies verified.
Patent IV site: __Right hand metacarpal by IV team___
IV site flushed with 0.9% NaCl pre and post administration.
Diluted bolus method utilized to enhance visualization of ventricular patel.
Total volume given: ____ mL
Patient tolerated all procedures well without complications.
Heplock D/C ed at 1018, site clear, no redness, no edema. Pressure held for few minutes as pt on anticoagulants, no bleeding,2x2 applied and taped. Pt offers no complaints.
== END ==
LOC: RCS 08:26
PROVIDERS: ATTENDING PHYSICIAN Internal Medicine Cardiovascular Disease; FAMILY PHYSICIAN Internal Medicine
DX: I42.8 Other cardiomyopathies (principal)
CPT/HCPCS: 93306; Q9950